=== PATIENT | female | born 1945 ===

== ENCOUNTER 2018-12-14 13:53 | Emergency (ER) | payer MEDICARE ==
--- OUTSIDE RECORDS SUMMARY | 2018-12-14 14:08 | XMS REPORT | Continuity of Care Document ---
:1945 External Reference #:[id number] Author Name Terrence Ortiz Care Team Providers Name Role Phone Jagdish Means MD Primary Care Physician Unavailable Payers Date Identification Numbers Payment Provider Subscriber Effective: 2014 Policy Number: [id number] Medicare Kym Ceballos Group Name: Medicare [address] PayID: [id number] PAZ Vera [id number] Effective: 2014 Policy Number: [id number] Lifetime Benefit Kym Ceballos Solution Group Name: [facility] [address] [address] PayID: [facility] [place] [phone] Effective: 2003 Group Name: Workers[employer] Kym Ceballos Onset: [address] [place] [address] Advance Directives Description No Information Available Problems Date Description Provider Status Onset: 08/13/2018 Upper respiratory infection Active Onset: 08/13/2018 Osteoarthritis Active Onset: 08/13/2018 Acute bronchitis Active Onset: 06/10/2012 Essential hypertension Active Onset: 06/10/2012 Hyperlipidemia Active Onset: 06/10/2012 Gastroesophageal reflux disease Active Onset: 06/10/2012 Arthropathy Active Onset: 06/10/2012 Microscopic hematuria Active Onset: 06/10/2012 Neck pain Active Onset: 11/18/2018 Chest pain CATA Pa Active Onset: 11/18/2018 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 Bradycardia CATA Pa Active Onset: 11/18/2018 Premature beats CATA Pa Active Onset: 11/18/2018 Allergic rhinitis CATA Pa Active Family History Date Family Member(s) Observation Comments General NM General multiple births General Stroke General Alcoholism General Arthritis General Bipolar Disorder General Depression General Anemia General Gastroesophageal Reflux Disease (GERD) General Glaucoma General Diverticulitis General Gout Father due to NM () Mother due to Stroke () Siblings 7 Social History Type Date Description Comments Sex Unknown Marital Status Lives With Alone Occupation Retired ETOH Use Occasionally consumes alcohol Tobacco Use Start: Unknown Patient has never smoked Recreational Drug Use Never Used Drugs Smoking Status Reviewed: 11/18/18 Patient has never smoked Exercise Type/Frequency Exercises regularly Exercise Type/Frequency Bikes 5 times a week Allergies, Adverse Reactions, Alerts Date Description Reaction Status Severity Comments 08/30/2018 Morphine Liposomal Free Text Active 08/30/2018 Sulfa Antibiotics Active Medications Medication Date Status Form Strength Qnty SIG Indications Ordering Provider Amoxicillin 11/25/ Active Tablets 875mg 20tabs 1 by mouth J02.9 Jagdish 2018 twice a day Davis hendrickson MD Zantac 02/25/ Active Tablets 300mg 90tabs Take One Jagdish 2017 Tablet By Davis Mouth AT os, Bedtime Exforge 08/24/ Active Tablets 10-160mg 90tabs Take One Jagdish 2015 Tablet By Josieellamaria ines Mouth Every os, Day Vitamin D3 09/16/ Active Tablets 2000Unit 30tabs 1 by mouth Jagdish Super Strength 2016 every day Davis hendrickson MD Atorvastatin 05/21/ Active Tablets 10mg 90tabs Take One Jagdish Calcium 2015 Tablet By Castellamaria ines Mouth Every os, Day Pantoprazole 12/02/ Active Tablets DR 40mg 90tabs Take One Jagdish Sodium 2014 Tablet By Castellamaria ines Mouth Every os, MD [place] Amoxicillin 08/13/ Hx Tablets 500mg 20tabs 1 by mouth J20.9 Jagdish 2017 - three times Castellan 08/20/ a day os, 2018 Benzonatate 03/22/ Hx Capsules 200mg 30caps one three R05 Jagdish 2017 - times a day Castellan 06/21/ as needed os, 2018 cough Amoxicillin 03/22/ Hx Tablets 875mg 20tabs 1 by mouth J20.9 Jagdish 2017 - twice a day Castellan 06/21/ os, 2018 Amoxicillin 03/16/ Hx Tablets 875mg 20tabs 1 by mouth J06.9 Jagdish 2015 - twice a day Castellan 09/19/ osMD 2017 Zantac 12/15/ Hx Tablets 150mg 180tab one to pill K21.9 Jagdish 2015 - s twice a day Josieellan 12/21/ os, 2016 Amoxicillin 09/23/ Hx Tablets 875mg 20tabs 1 by mouth J02.9 Jagdish 2016 - twice a day Castellan 12/15/ os, 2016 Melatonin 09/16/ Hx Capsules 5mg @ hs Jagdish 2016 - Castellan 06/20/ os, 2016 Levofloxacin 08/17/ Hx Tablets 500mg 10tabs 1 by mouth J06.9 Jagdish 2014 - every day Castellan 09/16/ os, 2016 Advair Diskus 08/17/ Hx Aerosol 500-50mcg/ 60unit inhale 1 R05 Jagdish 2014 - Dose s puff by Castellan 08/17/ mouth twice os, 2015 daily - rinse mouth after each use Prednisone 08/10/ Hx Tablets 20mg 9tabs day 1and J98.01 Jagdish 2014 - day 2 two Castellan 09/16/ tablets os, 2015 qd,then day3,4,5 one qd,the one half tabletday 6,7,8,9 Doxycycline 08/10/ Hx Capsules 100mg 20caps 1 by mouth J06.9 Jagdish Solis 2014 - twice a day Castellan 09/16/ for 10 days os, 2015 Prednisone 11/26/ Hx Tablets 20mg 9tabs day 1and 519.11 Jagdish 2013 - day 2 two Castellan 12/10/ tablets os, 2013 qd,then day3,4,5 one qd,the one half tabletday 6,7,8,9 Benzonatate 11/26/ Hx Capsules 200mg 30caps one three 786.2 Jagdish 2013 - times a day Castellan 12/10/ as needed os, 2013 cough Vitamin D 06/11/ Hx Capsules [id number] 4caps take 1 790.6 Jagdish (Ergocalcifero 2012 - capsule by Davis tobias) 09/16/ mouth once os, 2016 weekly Benzonatate 10/07/ Hx Capsules 200mg 30caps one tid prn 786.2 Jagdish 2012 - cough Josieellan 09/11/ os, 2013 Proair HFA 10/07/ Hx Aerosol 108(90Base 1units 2 puffs q 4 786.2 Jagdish 2012 - ) mcg/Act hrs prn oJsieellan 09/11/ os, 2013 Zithromax 10/03/ Hx Tablets 250mg 6tabs day number 466.0 Jagdish 2012 - one two Castellan 09/11/ qd,thendays os, 2013 two thru five one pill qd Vitamin D 06/10/ Hx Capsules [id number] 4caps take 1 268.9 Jagdish (Ergocalcifero 2011 - capsule by Davis tobias) 09/11/ mouth once os, MD [place] weekly Erythromycin / Hx Ointment 5mg/GM Apply To Unknown 0000 - Sutures 06/20/ Four Times 2017 A Day For 7 10 Days Medications Administered in Office Medication Date Status Form Strength Qnty SIG Indications Ordering Provider Shingrix Administered Injection Unknown pharmacy 019 administered Immunizations CPT Code Status Date Vaccine Lot # [id number] Given 06/22/2018 Zoster (Shingles) Vaccine (HZV), Recombinant, Subunit, Adjuvanted 93289 Given 06/21/2018 Fluzone High Dose 94234 Given 06/20/2017 Pneumonia Vaccine 57399 Given 06/20/2017 Fluzone High Dose 48323 Given 06/19/2016 Pneumococcal Conjugate Vaccine 13 Valent For Intramuscular Use 15255 Given 06/19/2016 Fluzone High Dose 27796 Given 06/17/2015 Fluzone High Dose 37160 Given 06/15/2014 Fluzone High Dose 62059 Given 06/10/2012 Pneumonia Vaccine 72380 Given 10/26/2010 Zoster (Zostavax) 86401 Given 05/06/2009 Tdap - Tetanus/Diptheria/Acellular Pertussis 42177 Given 04/12/2000 Rabies Vaccine Intramuscular 29202 Given 04/09/2000 Rabies Vaccine Intramuscular 37507 Given 12/02/1999 Hepatitis B Lisa Adoles For Intramuscular Use 68905 Given 06/21/1999 Hepatitis B Lisa Adoles For Intramuscular Use 18398 Given 05/24/1999 Hepatitis B Lisa Adoles For Intramuscular Use Vital Signs Date Vital Result Comment 11/25/2018 11:36am Weight 172.25 lb Heart Rate 83 /min Body Temperature 99.3 F O2 % BldC Oximetry 98 % 11/18/2018 2:29pm Weight 171.25 lb Heart Rate 80 /min BP Systolic Sitting 110 mmHg BP Diastolic Sitting 50 mmHg O2 % BldC Oximetry 97 % 2018 10:13am Weight 171.00 lb BP Systolic Sitting 110 mmHg BP Diastolic Sitting 50 mmHg 08/13/2018 1:04pm Weight 175.00 lb BP Systolic 122 mmHg BP Diastolic 76 mmHg Body Temperature 97.3 F 06/21/2018 9:40am Height 60 inches Weight 174.38 lb Respiratory Rate 12 /min Body Temperature 98.7 F BMI (Body Mass Index) 34.1 kg/m2 06/21/2018 10:50am BP Systolic 120 mmHg BP Diastolic 80 mmHg 03/22/2018 10:04am Weight 185.00 lb Heart Rate 82 /min BP Systolic 112 mmHg BP Diastolic 72 mmHg 02/04/2018 1:29pm Weight 193.31 lb BP Systolic 116 mmHg BP Diastolic 70 mmHg 12/21/2017 10:06am Weight 196.00 lb BP Systolic 118 mmHg BP Diastolic 70 mmHg 09/20/2017 10:45am Weight 201.00 lb BP Systolic 118 mmHg BP Diastolic 70 mmHg 06/20/2017 1:16pm Height 60 inches Weight 209.00 lb Heart Rate 70 /min BP Systolic 122 mmHg BP Diastolic 70 mmHg Respiratory Rate 12 /min Body Temperature 98.7 F BMI (Body Mass Index) 40.8 kg/m2 03/19/2017 9:58am Height 60.5 inches Weight 208.00 lb BP Systolic 118 mmHg BP Diastolic 82 mmHg BMI (Body Mass Index) 39.9 kg/m2 12/19/2016 2:28pm Height 60.5 inches Weight 206.00 lb Heart Rate 70 /min BP Systolic 116 mmHg BP Diastolic 68 mmHg Respiratory Rate 12 /min Body Temperature 97.0 F BMI (Body Mass Index) 39.6 kg/m2 12/18/2016 9:29am Weight 206.00 lb BP Systolic 116 mmHg BP Diastolic 68 mmHg 09/19/2016 11:19am Weight 205.00 lb BP Systolic 118 mmHg BP Diastolic 68 mmHg 06/19/2016 1:15pm Height 60.5 inches Weight 197.00 lb Heart Rate 70 /min BP Systolic 120 mmHg BP Diastolic 70 mmHg Respiratory Rate 12 /min Body Temperature 98.7 F BMI (Body Mass Index) 37.8 kg/m2 03/16/2016 10:07am Weight 196.00 lb BP Systolic 118 mmHg BP Diastolic 70 mmHg 12/16/2015 10:14am Weight 202.00 lb BP Systolic 124 mmHg BP Diastolic 70 mmHg 09/23/2015 1:45pm Weight 207.00 lb BP Systolic 110 mmHg BP Diastolic 60 mmHg Body Temperature 97.8 F 09/16/2015 9:30am Weight 208.00 lb BP Systolic 118 mmHg BP Diastolic 70 mmHg 08/17/2015 10:03am Weight 210.00 lb Heart Rate 76 /min BP Systolic 118 mmHg BP Diastolic 76 mmHg Body Temperature 97.8 F 08/10/2015 1:00pm Weight 212.00 lb 06/17/2015 1:32pm Weight 206.00 lb BP Systolic 128 mmHg BP Diastolic 70 mmHg 03/16/2015 9:01am Weight 205.00 lb BP Systolic 120 mmHg BP Diastolic 72 mmHg 12/15/2014 9:00am Weight 203.00 lb BP Systolic 130 mmHg BP Diastolic 74 mmHg 11/18/2014 4:35pm Weight 203.00 lb BP Systolic 128 mmHg BP Diastolic 80 mmHg 08/31/2014 10:32am Weight 205.38 lb BP Systolic 130 mmHg BP Diastolic 70 mmHg 06/15/2014 3:32pm Height 60.75 inches Weight 210.00 lb Heart Rate 81 /min BP Systolic 120 mmHg BP Diastolic 82 mmHg Body Temperature 97.7 F BMI (Body Mass Index) 40.0 kg/m2 02/16/2014 10:37am Height 61 inches Weight 197.25 lb Heart Rate 70 /min BP Systolic 116 mmHg BP Diastolic 70 mmHg Respiratory Rate 14 /min Body Temperature 98.6 F BMI (Body Mass Index) 37.3 kg/m2 12/10/2013 4:07pm Weight 194.00 lb BP Systolic 118 mmHg BP Diastolic 78 mmHg 11/26/2013 9:28am Weight 194.00 lb BP Systolic 118 mmHg BP Diastolic 70 mmHg Body Temperature 98.8 F 09/11/2013 2:27pm Weight 199.00 lb BP Systolic 118 mmHg BP Diastolic 68 mmHg 06/11/2013 3:49pm Height 61.5 inches Weight 197.00 lb Heart Rate 68 /min BP Systolic 1130 mmHg BP Diastolic 70 mmHg Respiratory Rate 14 /min Body Temperature 98.8 F BMI (Body Mass Index) 36.6 kg/m2 01/07/2013 4:01pm Weight 195.00 lb BP Systolic 130 mmHg BP Diastolic 80 mmHg 10/07/2012 3:13pm Weight 193.00 lb Heart Rate 79 /min Body Temperature 97.8 F 10/03/2012 4:16pm Weight 193.00 lb Body Temperature 99.0 F 07/01/2012 3:35pm Weight 191.00 lb BP Systolic 130 mmHg BP Diastolic 82 mmHg Body Temperature 97.1 F 06/10/2012 4:24pm Weight 197.00 lb BP Systolic 138 mmHg BP Diastolic 80 mmHg Results Test Date Facility Test Result H/L Range Note Laboratory test 06/14/2018 N2N/CCD Import Thyroid Stim 1.51 uIU/mL 0.3- 4.2 1 finding Hormone Vitamin D,25-Hydroxy 57.9 ng/mL 30-100 2 Basic Metabolic Panel 06/14/2018 N2N/CCD Import Anion Gap 5 mEq/L Low 8- 16 BUN 14 mg/dL 7-18 BUN/Creat 15.5 ratio Calcium 9.4 mg/dL 8.5-10.1 Carbon Dioxide 30 mmol/L 21-32 Chloride 108 mmol/L High 98-107 Creatinine 0.9 mg/dL 0.6-1.3 Glom Filtration Rate, Estimate >60 mL/min Glucose 102 mg/dL 74-106 If >60 mL/min 3 Potassium 3.9 mmol/L 3.5-5.1 Sodium 143 mmol/L 136-145 CBC Auto Diff 06/14/2018 N2N/CCD Import Bas% 0.5 % 0-1.1 Baso # 0.03 K/uL 0-0.1 Eo% 0.8 % 0-6.6 Eos # 0.05 K/uL 0-0.5 Hematocrit 37.5 % 36-46.1 Hemoglobin 12.4 gm/dL 11.6-15.8 Lymph # 1.92 K/uL 1-4 Lymph % 32.0 % 20-42 Mean Cell Volume 92.8 fl 80.9-99 Mean Corpuscular HGB 30.7 pg 25.9-32.7 Mean Corpuscular HGB Conc 33.1 g/dL 30.8-34.3 Mean Platelet Volume 10.3 fL 8.9-12.4 [place] # 0.41 K/uL 0.3-0.9 [place] % 6.8 % 4.3-13.2 Neut# 3.59 K/uL 1.8-7 Neut% 59.9 % 40.4-72.8 Platelet Count 301 K/uL 155-360 Red Blood Count 4.04 M/uL 3.9-5.4 Red Cell Distri Width %CV 13.8 % 11.7-14.4 Red Cell Distri Width SD 46.2 fl 3-47 White Blood Count 6.0 K/uL 3.1-10.7 Lipid Profile (Trig/Chol/HDL) 06/14/2018 N2N/CCD Import Cholesterol 176 mg/ dL 4 HDL Cholesterol 73 mg/dL 5 LDL-Cholesterol 79 mg/dL 6 Triglycerides 119 mg/dL 7 Liver Function Panel 06/14/2018 N2N/CCD Import Alb/Glob 1.0 ratio Albumin 3.9 g/dL 3.4-5 Alkaline Phosphatase 83 U/L 45-117 Bilirubin,Direct 0.1 mg/dL 0-0.2 Bilirubin,Indirect 0.3 mg/dL 0-0.9 Bilirubin,Total 0.4 mg/dL 0.2-1 Globulin 3.9 g/dL 1.9-4.3 SGPT/Alt 24 U/L 12-78 Sgot/Ast 16 U/L 15-37 Total Protein 7.8 g/dL 6.4-8.2 Basic Metabolic Panel 03/14/2018 N2N/CCD Import Anion Gap 7 mEq/L Low 8- 16 8 BUN 18 mg/dL 7-18 BUN/Creat 20.0 ratio Calcium 9.5 mg/dL 8.5-10.1 Carbon Dioxide 27 mmol/L 21-32 Chloride 110 mmol/L High 98-107 Creatinine 0.9 mg/dL 0.6-1.3 Glom Filtration Rate, Estimate >60 mL/min Glucose 114 mg/dL High 74-106 If >60 mL/min 9 Potassium 4.1 mmol/L 3.5-5.1 Sodium 144 mmol/L 136-145 CBC Auto Diff 03/14/2018 N2N/CCD Import Bas% 0.6 % 0-1.1 Baso # 0.03 K/uL 0-0.1 Eo% 1.1 % 0-6.6 Eos # 0.06 K/uL 0-0.5 Hematocrit 37.4 % 36-46.1 Hemoglobin 12.4 gm/dL 11.6-15.8 Lymph # 1.63 K/uL 1-4 Lymph % 30.3 % 20-42 Mean Cell Volume 91.9 fl 80.9-99 Mean Corpuscular HGB 30.5 pg 25.9-32.7 Mean Corpuscular HGB Conc 33.2 g/dL 30.8-34.3 Mean Platelet Volume 9.8 fL 8.9-12.4 [place] # 0.37 K/uL 0.3-0.9 [place] % 6.9 % 4.3-13.2 Neut# 3.29 K/uL 1.8-7 Neut% 61.1 % 40.4-72.8 Platelet Count 264 K/uL 155-360 Red Blood Count 4.07 M/uL 3.9-5.4 Red Cell Distri Width %CV 13.5 % 11.7-14.4 Red Cell Distri Width SD 44.0 fl 3-47 White Blood Count 5.4 K/uL 3.1-10.7 Lipid Profile (Trig/Chol/HDL) 03/14/2018 N2N/CCD Import Cholesterol 168 mg/ dL 10 HDL Cholesterol 70 mg/dL 11 LDL-Cholesterol 77 mg/dL 12 Triglycerides 105 mg/dL 13 Liver Function Panel 03/14/2018 N2N/CCD Import Alb/Glob 1.1 ratio Albumin 3.9 g/dL 3.4-5 Alkaline Phosphatase 83 U/L 45-117 Bilirubin,Direct 0.2 mg/dL 0-0.2 Bilirubin,Indirect 0.2 mg/dL 0-0.9 Bilirubin,Total 0.4 mg/dL 0.2-1 Globulin 3.7 g/dL 1.9-4.3 SGPT/Alt 28 U/L 12-78 Sgot/Ast 18 U/L 15-37 Total Protein 7.6 g/dL 6.4-8.2 Laboratory test 08/10/2017 N2N/CCD Import Hepatitis C Nonreactive finding Antibody Basic Metabolic 06/14/2017 N2N/CCD Import Anion Gap 7 mEq/L Low 8-16 14 Panel BUN 16 mg/dL 7-18 BUN/Creat 17.7 ratio Calcium 9.4 mg/dL 8.5-10.1 Carbon Dioxide 27 mmol/L 21-32 Chloride 107 mmol/L 98-107 Creatinine 0.9 mg/dL 0.6-1.3 Glom Filtration Rate, Estimate >60 mL/min Glucose 111 mg/dL High 74-106 If >60 mL/min 15 Potassium 4.0 mmol/L 3.5-5.1 Sodium 141 mmol/L 136-145 CBC Auto Diff 06/14/2017 N2N/CCD Import Bas% 0.9 % 0-1.1 Baso # 0.05 K/uL 0-0.1 Eo% 1.6 % 0-6.6 Eos # 0.09 K/uL 0-0.5 Hematocrit 37.6 % 36-46.1 Hemoglobin 12.3 gm/dL 11.6-15.8 Lymph # 1.78 K/uL 1-4 Lymph % 31.0 % 20-42 Mean Cell Volume 90.4 fl 80.9-99 Mean Corpuscular HGB 29.6 pg 25.9-32.7 Mean Corpuscular HGB Conc 32.7 g/dL 30.8-34.3 Mean Platelet Volume 9.6 fL 8.9-12.4 [place] # 0.35 K/uL 0.3-0.9 [place] % 6.1 % 4.3-13.2 Neut# 3.47 K/uL 1.8-7 Neut% 60.4 % 40.4-72.8 Platelet Count 314 K/uL 150-400 Red Blood Count 4.16 M/uL 3.9-5.4 Red Cell Distri Width %CV 13.8 % 11.7-14.4 Red Cell Distri Width SD 44.0 fl 3-47 White Blood Count 5.7 K/uL 3.1-10.7 Lipid Profile (Trig/Chol/HDL) 06/14/2017 N2N/CCD Import Cholesterol 171 mg/ dL 16 HDL Cholesterol 83 mg/dL 17 LDL-Cholesterol 63 mg/dL 18 Triglycerides 124 mg/dL 19 Liver Function Panel 06/14/2017 N2N/CCD Import Alb/Glob 1.0 ratio Albumin 3.8 g/dL 3.4-5 Alkaline Phosphatase 88 U/L 45-117 Bilirubin,Direct 0.1 mg/dL 0-0.2 Bilirubin,Indirect 0.3 mg/dL 0-0.9 Bilirubin,Total 0.4 mg/dL 0.2-1 Globulin 3.8 g/dL 1.9-4.3 SGPT/Alt 21 U/L 12-78 Sgot/Ast 15 U/L 15-37 Total Protein 7.6 g/dL 6.4-8.2 Basic Metabolic Panel 12/18/2016 N2N/CCD Import Anion Gap 6 mEq/L Low 8- 16 20 BUN 18 mg/dL 7-18 BUN/Creat 20.0 ratio Calcium 9.5 mg/dL 8.5-10.1 Carbon Dioxide 28 mmol/L 21-32 Chloride 108 mmol/L High 98-107 Creatinine 0.9 mg/dL 0.6-1.3 Glom Filtration Rate, Estimate >60 mL/min Glucose 100 mg/dL 74-106 If >60 mL/min 21 Potassium 4.1 mmol/L 3.5-5.1 Sodium 142 mmol/L 136-145 CBC Auto Diff 12/18/2016 N2N/[employer] Import Bas% 0.7 % 0-1.1 Baso # 0.04 K/uL 0-0.1 Eo% 0.9 % 0-6.6 Eos # 0.05 K/uL 0-0.5 Hematocrit 38.1 % 36-46.1 Hemoglobin 12.5 gm/dL 11.6-15.8 Lymph # 2.06 K/uL 1-4 Lymph % 38.1 % 20-42 Mean Cell Volume 89.0 fl 80.9-99 Mean Corpuscular HGB 29.2 pg 25.9-32.7 Mean Corpuscular HGB Conc 32.8 g/dL 30.8-34.3 Mean Platelet Volume 10.1 fL 8.9-12.4 [place] # 0.37 K/uL 0.3-0.9 [place] % 6.8 % 4.3-13.2 Neut# 2.89 K/uL 1.8-7 Neut% 53.5 % 40.4-72.8 Platelet Count 301 K/uL 150-400 Red Blood Count 4.28 M/uL 3.9-5.4 Red Cell Distri Width %CV 14.3 % 11.7-14.4 Red Cell Distri Width SD 45.7 fl 3-47 White Blood Count 5.4 K/uL 3.1-10.7 Lipid Profile (Trig/Chol/HDL) 12/18/2016 N2N/[employer] Import Cholesterol 197 mg/ dL 22 HDL Cholesterol 75 mg/dL 23 LDL-Cholesterol 99 mg/dL 24 Triglycerides 117 mg/dL 25 Liver Function Panel 12/18/2016 N2N/[employer] Import Alb/Glob 1.0 ratio Albumin 4.0 g/dL 3.4-5 Alkaline Phosphatase 104 U/L 45-117 Bilirubin,Direct 0.1 mg/dL 0-0.2 Bilirubin,Indirect 0.4 mg/dL 0-0.9 Bilirubin,Total 0.5 mg/dL 0.2-1 Globulin 4.0 g/dL 1.9-4.3 SGPT/Alt 26 U/L 12-78 Sgot/Ast 14 U/L Low 15-37 26 Total Protein 8.0 g/dL 6.4-8.2 Imaging finding 07/10/2016 N2N/CCD Import bilateral mammogram <pending> Basic Metabolic Panel 06/15/2016 N2N/CCD Import @[facility] Pat Id: [id number] @[facility] Req #: [id number] 1 Anion Gap 7 mEq/L Low 8-16 BUN 16 mg/dL 7-18 BUN/Creat 17.7 ratio Calcium 9.1 mg/dL 8.5-10.1 Carbon Dioxide 26 mmol/L 21-32 Chloride 108 mmol/L High 98-107 Creatinine 0.9 mg/dL 0.6-1.3 Glom Filtration Rate, Estimate >60 mL/min Glucose 102 mg/dL 74-106 If >60 mL/min 28 Is Patient Fasting? Fasting Potassium 4.0 mmol/L 3.5-5.1 Sodium 141 mmol/L 136-145 CBS W/Automated Diff 06/15/2016 N2N/CCD Import @[facility] Pat Id: [id number] @[facility] Req #: [id number] 1 Bas% 0.8 % 0-1.1 Baso # 0.04 K/uL 0-0.1 Eo% 1.2 % 0-6.6 Eos # 0.06 K/uL 0-0.5 Hematocrit 36.3 % 36-46.1 Hemoglobin 11.9 gm/dL 11.6-15.8 Lymph # 1.55 K/uL Low 1.8-7 Lymph % 32.2 % 17-46.1 Mean Cell Volume 92.8 fl 80.9-99 Mean Corpuscular HGB 30.4 pg 25.9-32.7 Mean Corpuscular HGB Conc 32.8 g/dL 30.8-34.3 Mean Platelet Volume 9.9 fL 8.9-12.4 [place] # 0.31 K/uL 0.3-0.9 [place] % 6.4 % 4.3-13.2 Neut# 2.86 K/uL 1.8-7 Neut% 59.4 % 40.4-72.8 Platelet Count 313 K/uL 155-360 Red Blood Count 3.91 M/uL 3.9-5.4 Red Cell Distri Width %CV 13.5 % 11.7-14.4 Red Cell Distri Width SD 44.8 fl 3-47 White Blood Count 4.8 K/uL 3.1-10.7 LDL Cholesterol Profile 06/15/2016 N2N/CCD Import @[facility] Pat Id: [id number] @[facility] Req #: [id number] 1 Cholesterol 172 mg/dL 29 HDL Cholesterol 71 mg/dL 30 Is Patient Fasting? Fasting LDL-Cholesterol 80 mg/dL 31 Triglycerides 106 mg/dL 32 Liver Function Tests 06/15/2016 N2N/CCD Import @[facility] Pat Id: [id number] @[facility] Req #: [id number] 1 Alb/Glob 1.1 ratio Albumin 3.7 g/dL 3.4-5 Alkaline Phosphatase 80 U/L 45-117 Bilirubin,Direct 0.1 mg/dL 0-0.2 Bilirubin,Indirect 0.3 mg/dL 0-0.9 Bilirubin,Total 0.4 mg/dL 0.2-1 Globulin 3.5 g/dL 1.9-4.3 Is Patient Fasting? Fasting SGPT/Alt 20 U/L 12-78 Sgot/Ast 16 U/L 15-37 Total Protein 7.2 g/dL 6.4-8.2 Laboratory test 09/23/2015 N2N/CCD Import Throat Strep See Note 33 finding Screen Basic Metabolic Panel 06/11/2015 N2N/CCD Import Anion Gap 5 mEq/L Low 8- 16 BUN 18 mg/dL 7-18 BUN/Creat 18.0 ratio Calcium 9.1 mg/dL 8.5-10.1 Carbon Dioxide 28 mmol/L 21-32 Chloride 107 mmol/L 98-107 Creatinine 1.0 mg/dL 0.6-1.3 Glom Filtration Rate, Estimate 59 mL/min Glucose 102 mg/dL 74-106 If >60 mL/min 34 Potassium 4.0 mmol/L 3.5-5.1 Sodium 140 mmol/L 136-145 CBS W/Automated Diff 06/11/2015 N2N/CCD Import Bas% 1.0 % 0-1.1 Baso # 0.06 K/uL 0-0.1 Eo% 2.1 % 0-6.6 Eos # 0.12 K/uL 0-0.5 Hematocrit 34.7 % Low 36-46.1 Hemoglobin 11.6 gm/dL 11.6-15.8 Lymph # 1.69 K/uL Low 1.8-7 Lymph % 29.0 % 17-46.1 Mean Cell Volume 91.6 fl 80.9-99 Mean Corpuscular HGB 30.6 pg 25.9-32.7 Mean Corpuscular HGB Conc 33.4 g/dL 30.8-34.3 Mean Platelet Volume 10.1 fL 8.9-12.4 [place] # 0.44 K/uL 0.3-0.9 [place] % 7.5 % 4.3-13.2 Neut# 3.52 K/uL 1-7 Neut% 60.4 % 40.4-72.8 Platelet Count 289 K/uL 155-360 Red Blood Count 3.79 M/uL Low 3.9-5.4 Red Cell Distri Width %CV 13.9 % 11.7-14.4 Red Cell Distri Width SD 44.2 fl 3-47 White Blood Count 5.8 K/uL 3.1-10.7 LDL Cholesterol Profile 06/11/2015 [employer] Import Cholesterol 181 mg/dL 35 HDL Cholesterol 74 mg/dL 36 LDL-Cholesterol 83 mg/dL 37 Triglycerides 121 mg/dL 38 Liver Function Tests 06/11/2015 [employer] Import Alb/Glob 0.9 ratio Albumin 3.6 g/dL 3.4-5 Alkaline Phosphatase 100 U/L 45-117 Bilirubin,Direct < 0.1 mg/dL 0-0.2 Bilirubin,Indirect 0.3 mg/dL 0-0.9 Bilirubin,Total 0.4 mg/dL 0.2-1 Globulin 3.8 g/dL 1.9-4.3 SGPT/Alt 32 U/L 12-78 Sgot/Ast 15 U/L 15-37 Total Protein 7.4 g/dL 6.4-8.2 Imaging finding 06/25/2014 N2N/[employer] Import bilateral screening <pending> mammogram Laboratory test 06/12/2014 [employer] Import Glycohemoglobin (A1c) 6.1 % 4.2-6. 39 finding 3 TSH Reflex FT4 and/or FT3 1.59 uIU/mL 0.36-3.74 40 Vitamin D,25-Hydroxy 36.1 ng/mL 30-100 41 eAG 128 mg/dL Basic Metabolic Panel 06/12/2014 N2N/CCD Import Anion Gap 9 mEq/L 8-16 BUN 17 mg/dL 7-18 BUN/Creat 21.2 ratio Calcium 8.9 mg/dL 8.5-10.1 Carbon Dioxide 26 mmol/L 21-32 Chloride 111 mmol/L High 98-107 Creatinine 0.8 mg/dL 0.6-1.3 Glom Filtration Rate, Estimate >60 mL/min Glucose 91 mg/dL 74-106 If >60 mL/min 42 Potassium 3.9 mmol/L 3.5-5.1 Sodium 142 mmol/L 136-145 CBS W/Automated Diff 06/12/2014 N2N/CCD Import Bas% 1.0 % 0-1.1 Baso # 0.05 K/uL 0-0.1 Eo% 2.0 % 0-6.6 Eos # 0.10 K/uL 0-0.5 Hematocrit 35.7 % Low 36-46.1 Hemoglobin 11.6 gm/dL 11.6-15.8 Lymph # 1.98 K/uL 0.8-3.4 Lymph % 39.4 % 17-46.1 Mean Cell Volume 89.0 fl 80.9-99 Mean Corpuscular HGB 28.9 pg 25.9-32.7 Mean Corpuscular HGB Conc 32.5 g/dL 30.8-34.3 Mean Platelet Volume 9.7 fL 8.9-12.4 [place] # 0.31 K/uL 0.3-0.9 [place] % 6.2 % 4.3-13.2 Neut# 2.58 K/uL 1-7 Neut% 51.4 % 40.4-72.8 Platelet Count 271 K/uL 155-360 Red Blood Count 4.01 M/uL 3.9-5.4 Red Cell Distri Width %CV 13.5 % 11.7-14.4 Red Cell Distri Width SD 43.0 fl 3-47 White Blood Count 5.0 K/uL 3.1-10.7 LDL Cholesterol Profile 06/12/2014 N2N/CCD Import Cholesterol 188 mg/dL 43 HDL Cholesterol 78 mg/dL 44 LDL-Cholesterol 87 mg/dL 45 Triglycerides 115 mg/dL 46 Liver Function Tests 06/12/2014 N2N/CCD Import Alb/Glob 0.9 ratio Albumin 3.4 g/dL 3.4-5 Alkaline Phosphatase 86 U/L 45-117 Bilirubin,Direct 0.1 mg/dL 0-0.2 Bilirubin,Indirect 0.2 mg/dL 0-0.9 Bilirubin,Total 0.3 mg/dL 0.2-1 Globulin 3.6 g/dL 1.9-4.3 SGPT/Alt 22 U/L 12-78 Sgot/Ast 12 U/L Low 15-37 Total Protein 7.0 g/dL 6.4-8.2 Laboratory test 09/03/2013 N2N/CCD Import Vitamin 38.7 ng/mL 30-100 47 finding D,25-Hydroxy Imaging finding 06/23/2013 N2N/CCD Import bilateral screening <pending> mamogram Laboratory test 06/07/2013 N2N/CCD Import Anion Gap 11 mEq/L 8-16 finding BUN 17 mg/dL 5-23 BUN/Creat 24.2 ratio Calcium 9.8 mg/dL 8.5-10.1 Carbon Dioxide 28 mEq/L 18-29 Chloride 106 mmol/L 98-107 Creatinine 0.7 mg/dL 0.5-1.4 Glom Filtration Rate, Estimate >60 mL/min Glucose 94 mg/dL 76-115 Glycohemoglobin (A1c) 6.0 % 4.8-6 48 If >60 mL/min 49 Potassium 4.1 mmol/L 3.5-5.1 Sodium 141 mmol/L 136-145 TSH Reflex FT4 and/or FT3 2.13 uIU/mL 0.49-4.67 50 Vitamin D,25-Hydroxy 25.0 ng/mL Low 30-100 51 eAG 126 mg/dL CBS W/Automated Diff 06/07/2013 N2N/CCD Import Bas% 0.7 % 0-1.1 Baso # 0.04 K/uL 0-0.1 Eo% 1.2 % 0-6.6 Eos # 0.07 K/uL 0-0.5 Hematocrit 36.9 % 36-46.1 Hemoglobin 12.5 gm/dL 11.6-15.8 Lymph # 1.79 K/uL 0.8-3.4 Lymph % 31.2 % 17-46.1 Mean Cell Volume 90.2 fl 80.9-99 Mean Corpuscular HGB 30.6 pg 25.9-32.7 Mean Corpuscular HGB Conc 33.9 g/dL 30.8-34.3 Mean Platelet Volume 10.3 fL 8.9-12.4 [place] # 0.36 K/uL 0.3-0.9 [place] % 6.3 % 4.3-13.2 Neut# 3.48 K/uL 1-7 Neut% 60.6 % 40.4-72.8 Platelet Count 298 K/uL 155-360 Red Blood Count 4.09 M/uL 3.9-5.4 Red Cell Distri Width %CV 13.2 % 11.7-14.4 Red Cell Distri Width SD 42.9 fl 3-47 White Blood Count 5.7 K/uL 3.1-10.7 LDL Cholesterol Profile 06/07/2013 [facility] Import Cholesterol 188 mg/dL 120-200 HDL Cholesterol 65 mg/dL 29-83 LDL-Cholesterol 93 mg/dL 62-185 Triglycerides 148 mg/dL 16-231 Liver Function Tests 06/07/2013 [facility] Import Alb/Glob 1.1 ratio Albumin 4.0 g/dL 3.5-5 Alkaline Phosphatase 93 U/L 50-136 Bilirubin,Direct 0.1 mg/dL 0.1-0.4 Bilirubin,Indirect 0.4 mg/dL 0-0.9 Bilirubin,Total 0.5 mg/dL 0.2-1.2 Globulin 3.7 g/dL 1.9-4.3 SGPT/Alt 22 U/L Low 30-65 Sgot/Ast 13 U/L Low 16-40 Total Protein 7.7 g/dL 6.3-8 Laboratory test 01/04/2013 [facility] Import Glycohemoglobin (A1c) 6.3 % High 4.8-6 52 finding TSH Reflex FT4 and/or FT3 1.95 uIU/mL 0.49-4.67 53 eAG 134 mg/dL Basic Metabolic Panel 01/04/2013 [facility] Import Anion Gap 12 mEq/L 8-16 BUN 14 mg/dL 5-23 BUN/Creat 17.5 ratio Calcium 9.4 mg/dL 8.5-10.1 Carbon Dioxide 26 mEq/L 18-29 Chloride 108 mmol/L High 98-107 Creatinine 0.8 mg/dL 0.5-1.4 Glom Filtration Rate, Estimate >60 mL/min Glucose 88 mg/dL 76-115 If >60 mL/min 54 Potassium 4.2 mmol/L 3.5-5.1 Sodium 142 mmol/L 136-145 Liver Function Tests 01/04/2013 [facility] Import Alb/Glob 1.1 ratio Albumin 3.8 g/dL 3.5-5 Alkaline Phosphatase 86 U/L 50-136 Bilirubin,Direct 0.1 mg/dL 0.1-0.4 Bilirubin,Indirect 0.5 mg/dL 0-0.9 Bilirubin,Total 0.6 mg/dL 0.2-1.2 Globulin 3.6 g/dL 1.9-4.3 SGPT/Alt 23 U/L Low 30-65 Sgot/Ast 12 U/L Low 16-40 Total Protein 7.4 g/dL 6.3-8 LDL Cholesterol 01/04/2013 [facility] Import Cholesterol 202 mg/dL High 120- 200 Profile HDL Cholesterol 87 mg/dL High 29-83 LDL-Cholesterol 94 mg/dL 62-185 Triglycerides 106 mg/dL 16-231 Laboratory test 08/02/2012 [facility] Import Vitamin D,25-Hydroxy 41.5 ng/mL 30-100 55 finding Laboratory test 05/29/2012 [facility] Import Glycohemoglobin 6.4 % High 4.8- 6 56 finding (A1c) eAG 137 mg/dL Laboratory test 05/29/2012 [facility] Import 2 Hour GTT See Note mg/dL 57 finding CBC W/Automated Diff 05/25/2012 [facility] Import Bas% 0.7 % 0-1.1 Baso # 0.04 K/uL 0-0.1 Eo% 3.1 % 0-6.6 Eos # 0.18 K/uL 0-0.5 Hematocrit 35.8 % Low 36-46.1 Hemoglobin 11.9 gm/dL 11.6-15.8 Lymph # 1.90 K/uL 0.8-3.4 Lymph % 33.2 % 17-46.1 Mean Cell Volume 88.2 fl 80.9-99 Mean Corpuscular HGB 29.3 pg 25.9-32.7 Mean Corpuscular HGB Conc 33.2 g/dL 30.8-34.3 Mean Platelet Volume 9.9 fL 8.9-12.4 [place] # 0.39 K/uL 0.3-0.9 [place] % 6.8 % 4.3-13.2 Neut# 3.21 K/uL 1-7 Neut% 56.2 % 40.4-72.8 Platelet Count 276 K/uL 155-360 Red Blood Count 4.06 M/uL 3.9-5.4 Red Cell Distri Width %CV 13.7 % 11.7-14.4 Red Cell Distri Width SD 42.8 fl 3-47 White Blood Count 5.7 K/uL 3.1-10.7 LDL Cholesterol Profile 05/25/2012 [facility] Import Cholesterol 193 mg/dL 120-200 HDL Cholesterol 71 mg/dL 29-83 LDL-Cholesterol 90 mg/dL 62-185 Triglycerides 161 mg/dL 16-231 Liver Function Tests 05/25/2012 [facility] Import Alb/Glob 1.1 ratio Albumin 3.7 g/dL 3.5-5 Alkaline Phosphatase 69 U/L 50-136 Bilirubin,Direct 0.1 mg/dL 0.1-0.4 Bilirubin,Indirect 0.4 mg/dL 0-0.9 Bilirubin,Total 0.5 mg/dL 0.2-1.2 Globulin 3.5 g/dL 1.9-4.3 SGPT/Alt 25 U/L Low 30-65 Sgot/Ast 12 U/L Low 16-40 Total Protein 7.2 g/dL 6.3-8 Basic Metabolic Panel 05/25/2012 [facility] Anion Gap 12 mEq/L 8-16 BUN 12 mg/dL 5-23 BUN/Creat 15.0 ratio Calcium 9.2 mg/dL 8.5-10.1 Carbon Dioxide 25 mEq/L 18-29 Chloride 108 mmol/L High 98-107 Creatinine 0.8 mg/dL 0.5-1.4 Glom Filtration Rate, Estimate >60 mL/min Glucose 90 mg/dL 76-115 If >60 mL/min 58 Potassium 3.7 mmol/L 3.5-5.1 Sodium 141 mmol/L 136-145 Laboratory test 05/25/2012 [facility] Import Glycohemoglobin (A1c) 6.5 % High 4.8-6 59 finding TSH Reflex FT4 and/or FT3 1.69 uIU/mL 0.49-4.67 60 Vitamin D,25-Hydroxy 28.8 ng/mL Low 30-100 61 eAG 140 mg/dL 1 E78.5,I10,R53.83 2 Vitamin D deficiency has been defined by the [place] [employer] and an Endocrine Society practice guideline as a level of serum 25-OH vitamin D less than 20 ng/mL (1,2). The Endocrine Society went on to further define vitamin D insufficiency as a level between 21 and 29 ng/mL (2). 1. IOM ([place] [employer]). 2010. Dietary reference intakes for calcium and D. [place]: The National Academ[employer] Press. 2. Kellie MF, Donald NC, Rossi JONES, et al. Evaluation, treatment, and prevention of vitamin D deficiency: an Endocrine Society clinical practice guideline. JCEM. 2010; 96(7):1911-30. Performed at: RN - [facility] [address] [id number] Hotel Front Office Manager: Joceline Herrera MD, Phone: [phone] Note: Persistent reduction for 3 months or more in an eGFR <60 mL/min/1.73 m2 defines CKD. Patients with eGFR values >/=60 mL/min/1.73 m2 may also have CKD if evidence of persistent proteinuria is present. The original MDRD equation for estimated GFR is not valid for patients less than 18 years of age. Additional information may be found at www.kdoqi.org. 4 Reference Guidelines*: Desirable: ........... < 200 mg/dL Borderline High: ..... 200-239 mg/dL High: ................ >=240 mg/dL * The National Cholesterol Education Program (NCEP) 5 Reference Guidelines*: Low HDL: ..... < 40 mg/dL Normal: ..... 40-60 mg/dL Desirable: ... > 60 mg/dL *The National Cholesterol Education Program(NCEP) 6 Reference Guidelines*: Optimal:........... <100 mg/dL Near Optimal....... 100-129 mg/dL Borderline High.... 130-159 mg/dL High............... 160-189 mg/dL Very High.......... >=190 mg/dL * Source: National Cholesterol Education Program (NCEP) 7 Reference Guidelines*: Normal: ............. < 150 mg/dL Borderline High: .... 150-199 mg/dL High: ............... 200-499 mg/dL Very High: .......... > 500 mg/dL * Source: National Cholesterol Education Program (NCEP) 8 I10 M15.0 E78.5 K21.9 9 Note: Persistent reduction for 3 months or more in an eGFR <60 mL/min/1.73 m2 defines CKD. Patients with eGFR values >/=60 mL/min/1.73 m2 may also have CKD if evidence of persistent proteinuria is present. The original MDRD equation for estimated GFR is not valid for patients less than 18 years of age. Additional information may be found at www.[email or web address]. 10 Reference Guidelines*: Desirable: ........... < 200 mg/dL Borderline High: ..... 200-239 mg/dL High: ................ >=240 mg/dL * The National Cholesterol Education Program (NCEP) 11 Reference Guidelines*: Low HDL: ..... < 40 mg/dL Normal: ..... 40-60 mg/dL Desirable: ... > 60 mg/dL *The National Cholesterol Education Program(NCEP) 12 Reference Guidelines*: Optimal:........... <100 mg/dL Near Optimal....... 100-129 mg/dL Borderline High.... 130-159 mg/dL High............... 160-189 mg/dL Very High.......... >=190 mg/dL * Source: National Cholesterol Education Program (NCEP) 13 Reference Guidelines*: Normal: ............. < 150 mg/dL Borderline High: .... 150-199 mg/dL High: ............... 200-499 mg/dL Very High: .......... > 500 mg/dL * Source: National Cholesterol Education Program (NCEP) 14 I10,E78.5,K21.9 15 Note: Persistent reduction for 3 months or more in an eGFR <60 mL/min/1.73 m2 defines CKD. Patients with eGFR values >/=60 mL/min/1.73 m2 may also have CKD if evidence of persistent proteinuria is present. The original MDRD equation for estimated GFR is not valid for patients less than 18 years of age. Additional information may be found at www.kdoqi.org. 16 Reference Guidelines*: Desirable: ........... < 200 mg/dL Borderline High: ..... 200-239 mg/dL High: ................ >=240 mg/dL * The National Cholesterol Education Program (NCEP) 17 Reference Guidelines*: Low HDL: ..... < 40 mg/dL Normal: ..... 40-60 mg/dL Desirable: ... > 60 mg/dL *The National Cholesterol Education Program(NCEP) 18 Reference Guidelines*: Optimal:........... <100 mg/dL Near Optimal....... 100-129 mg/dL Borderline High.... 130-159 mg/dL High............... 160-189 mg/dL Very High.......... >=190 mg/dL * Source: National Cholesterol Education Program (NCEP) 19 Reference Guidelines*: Normal: ............. < 150 mg/dL Borderline High: .... 150-199 mg/dL High: ............... 200-499 mg/dL Very High: .......... > 500 mg/dL * Source: National Cholesterol Education Program (NCEP) 20 E78.5 K21.9 21 Note: Persistent reduction for 3 months or more in an eGFR <60 mL/min/1.73 m2 defines CKD. Patients with eGFR values >/=60 mL/min/1.73 m2 may also have CKD if evidence of persistent proteinuria is present. The original MDRD equation for estimated GFR is not valid for patients less than 18 years of age. Additional information may be found at www.[email or web address]. 22 Reference Guidelines*: Desirable: ........... < 200 mg/dL Borderline High: ..... 200-239 mg/dL High: ................ >=240 mg/dL * The National Cholesterol Education Program (NCEP) 23 Reference Guidelines*: Low HDL: ..... < 40 mg/dL Normal: ..... 40-60 mg/dL Desirable: ... > 60 mg/dL *The National Cholesterol Education Program(NCEP) 24 Reference Guidelines*: Optimal:........... <100 mg/dL Near Optimal....... 100-129 mg/dL Borderline High.... 130-159 mg/dL High............... 160-189 mg/dL Very High.......... >=190 mg/dL * Source: National Cholesterol Education Program (NCEP) 25 Reference Guidelines*: Normal: ............. < 150 mg/dL Borderline High: .... 150-199 mg/dL High: ............... 200-499 mg/dL Very High: .......... > 500 mg/dL * Source: National Cholesterol Education Program (NCEP) 26 Values below the stated reference ranges of AST and ALT can be seen in normal populations. Clinical correlation is suggested. 27 E78.5,I10,K21.9 28 Note: Persistent reduction for 3 months or more in an eGFR <60 mL/min/1.73 m2 defines CKD. Patients with eGFR values >/=60 mL/min/1.73 m2 may also have CKD if evidence of persistent proteinuria is present. The original MDRD equation for estimated GFR is not valid for patients less than 18 years of age. Additional information may be found at www.kdoqi.org. 29 Reference Guidelines*: Desirable: ........... < 200 mg/dL Borderline High: ..... 200-239 mg/dL High: ................ >=240 mg/dL * The National Cholesterol Education Program (NCEP) 30 Reference Guidelines*: Low HDL: ..... < 40 mg/dL Normal: ..... 40-60 mg/dL Desirable: ... > 60 mg/dL *The National Cholesterol Education Program(NCEP) 31 Reference Guidelines*: Optimal:........... <100 mg/dL Near Optimal....... 100-129 mg/dL Borderline High.... 130-159 mg/dL High............... 160-189 mg/dL Very High.......... >=190 mg/dL * Source: National Cholesterol Education Program (NCEP) 32 Reference Guidelines*: Normal: ............. < 150 mg/dL Borderline High: .... 150-199 mg/dL High: ............... 200-499 mg/dL Very High: .......... > 500 mg/dL * Source: National Cholesterol Education Program (NCEP) 33 NO BETA STREPTOCOCCI ISOLATED 34 Note: Persistent reduction for 3 months or more in an eGFR <60 mL/min/1.73 m2 defines CKD. Patients with eGFR values >/=60 mL/min/1.73 m2 may also have CKD if evidence of persistent proteinuria is present. The original MDRD equation for estimated GFR is not valid for patients less than 18 years of age. Additional information may be found at www.[email or web address]. 35 Reference Guidelines*: Desirable: ........... < 200 mg/dL Borderline High: ..... 200-239 mg/dL High: ................ >=240 mg/dL * The National Cholesterol Education Program (NCEP) 36 Reference Guidelines*: Low HDL: ..... < 40 mg/dL Normal: ..... 40-60 mg/dL Desirable: ... > 60 mg/dL *The National Cholesterol Education Program(NCEP) 37 Reference Guidelines*: Optimal:........... <100 mg/dL Near Optimal....... 100-129 mg/dL Borderline High.... 130-159 mg/dL High............... 160-189 mg/dL Very High.......... >=190 mg/dL * Source: National Cholesterol Education Program (NCEP) 38 Reference Guidelines*: Normal: ............. < 150 mg/dL Borderline High: .... 150-199 mg/dL High: ............... 200-499 mg/dL Very High: .......... > 500 mg/dL * Source: National Cholesterol Education Program (NCEP) 39 Elevated levels of HbA1c suggest the need for more aggressive treatment of glycemia. The [place] Diabetes Association recommends that a primary goal of therapy should be a HbA1c of <7% and that physicians should re-evaluate the treatment regimen in patients with HbA1c values consistently >8%. 40 QUERY: Reflex add FT3? N QUERY: Reflex add FT4? Y 41 Vitamin D deficiency has been defined by the [place] [employer] and an Endocrine Society practice guideline as a level of serum 25-OH vitamin D less than 20 ng/mL (1,2). The Endocrine Society went on to further define vitamin D insufficiency as a level between 21 and 29 ng/mL (2). 1. IOM ([place] [employer]). 2010. Dietary reference intakes for calcium and D. [place]: The National Academies Press. 2. Kellie MF, Donald NC, Rossi JONES, et al. Evaluation, treatment, and prevention of vitamin D deficiency: an Endocrine Society clinical practice guideline. JCEM. 2010; 96(7):1911-30. Performed at: RN - [facility] [address] [id number] Hotel Front Office Manager: Joceline Herrera MD, Phone: [phone] 42 Note: Persistent reduction for 3 months or more in an eGFR <60 mL/min/1.73 m2 defines CKD. Patients with eGFR values >/=60 mL/min/1.73 m2 may also have CKD if evidence of persistent proteinuria is present. The original MDRD equation for estimated GFR is not valid for patients less than 18 years of age. Additional information may be found at www.kdoqi.org. 43 Reference Guidelines*: Desirable: ........... < 200 mg/dL Borderline High: ..... 200-239 mg/dL High: ................ >=240 mg/dL * The National Cholesterol Education Program (NCEP) 44 Reference Guidelines*: Low HDL: ..... < 40 mg/dL Normal: ..... 40-60 mg/dL Desirable: ... > 60 mg/dL *The National Cholesterol Education Program(NCEP) 45 Reference Guidelines*: Optimal:........... <100 mg/dL Near Optimal....... 100-129 mg/dL Borderline High.... 130-159 mg/dL High............... 160-189 mg/dL Very High.......... >=190 mg/dL * Source: National Cholesterol Education Program (NCEP) 46 Reference Guidelines*: Normal: ............. < 150 mg/dL Borderline High: .... 150-199 mg/dL High: ............... 200-499 mg/dL Very High: .......... > 500 mg/dL * Source: National Cholesterol Education Program (NCEP) 47 Vitamin D deficiency has been defined by the [place] [employer] and an Endocrine Society practice guideline as a level of serum 25-OH vitamin D less than 20 ng/mL (1,2). The Endocrine Society went on to further define vitamin D insufficiency as a level between 21 and 29 ng/mL (2). 1. IOM ([place] [employer]). 2010. Dietary reference intakes for calcium and D. [place]: The National Academies Press. 2. Kellie MF, Donald NC, Rossi JONES, et al. Evaluation, treatment, and prevention of vitamin D deficiency: an Endocrine Society clinical practice guideline. JCEM. 2010; 96(7):1911-30. Performed at: - [facility] [address] [id number] Hotel Front Office Manager: Joceline Herrera MD, Phone: [phone] 48 A1c value between 5.7% and 6.4% is considered at increased risk for diabetes. A1c value greater than 6.5 % is considered essentially diagnostic for Type II diabetes. Current guidelines recommend a treatment goal of <7% for diabetic patients. This method will measure glycosylated hemoglobin variants, HbS, HbG, HbH, HbWayne, HbC, HbE, etc. Other hemoglobin- opathies may give incorrect results with this test. 49 Note: Persistent reduction for 3 months or more in an eGFR <60 mL/min/1.73 m2 defines CKD. Patients with eGFR values >/=60 mL/min/1.73 m2 may also have CKD if evidence of persistent proteinuria is present. The original MDRD equation for estimated GFR is not valid for patients less than 18 years of age. Additional information may be found at www.[email or web address]. 50 QUERY: Reflex add FT3? QUERY: Reflex add FT4? 51 Vitamin D deficiency has been defined by the [place] [employer] and an Endocrine Society practice guideline as a level of serum 25-OH vitamin D less than 20 ng/mL (1,2). The Endocrine Society went on to further define vitamin D insufficiency as a level between 21 and 29 ng/mL (2). 1. IOM ([place] [employer]). 2010. Dietary reference intakes for calcium and D. [place]: The National Academies Press. 2. Kellie MF, Donald NC, Rossi JONES, et al. Evaluation, treatment, and prevention of vitamin D deficiency: an Endocrine Society clinical practice guideline. JCEM. 2010; 96(7):1911-30. Performed at: [facility] [address] [id number] Hotel Front Office Manager: Joceline Herrera MD, Phone: [phone] 52 A1c value between 5.7% and 6.4% is considered at increased risk for diabetes. A1c value greater than 6.5 % is considered essentially diagnostic for Type II diabetes. Current guidelines recommend a treatment goal of <7% for diabetic patients. This method will measure glycosylated hemoglobin variants, HbS, HbG, HbH, HbWayne, HbC, HbE, etc. Other hemoglobin- opathies may give incorrect results with this test. 53 QUERY: Add FT3 if TSH abnormal? FT3 N QUERY: Add FT4 if TSH Abnormal? FT4 Y 54 Note: Persistent reduction for 3 months or more in an eGFR <60 mL/min/1.73 m2 defines CKD. Patients with eGFR values >/=60 mL/min/1.73 m2 may also have CKD if evidence of persistent proteinuria is present. The original MDRD equation for estimated GFR is not valid for patients less than 18 years of age. Additional information may be found at www.kdoqi.org. 55 Vitamin D deficiency has been defined by the [place] [employer] and an Endocrine Society practice guideline as a level of serum 25-OH vitamin D less than 20 ng/mL (1,2). The Endocrine Society went on to further define vitamin D insufficiency as a level between 21 and 29 ng/mL (2). 1. IOM ([place] [employer]). 2010. Dietary reference intakes for calcium and D. [place]: The National Academies Press. 2. Kellie MF, Donald NC, Rossi JONES, et al. Evaluation, treatment, and prevention of vitamin D deficiency: an Endocrine Society clinical practice guideline. JCEM. 2010; 96(7):1911-30. Performed at: RN - [facility] [address] [id number] Hotel Front Office Manager: Joceline Herrera MD, Phone: [phone] 56 A1c value between 5.7% and 6.4% is considered at increased risk for diabetes. A1c value greater than 6.5 % is considered essentially diagnostic for Type II diabetes. Current guidelines recommend a treatment goal of <7% for diabetic patients. This method will measure glycosylated hemoglobin variants, HbS, HbG, HbH, HbWayne, HbC, HbE, etc. Other hemoglobin- opathies may give incorrect results with this test. 57 Glucose, Fast 98 mg/dL 1/2 Hr Glucose 159 mg/dL 1 Hr Glucose 171 (H) mg/dL 2 Hr Glucose PENDING FAST URINE GLU NEGATIVE % FAST URINE KET NEGATIVE 1/2HR URINE GLU NEGATIVE % 1/2HR URINE KET NEGATIVE 1HR URINE GLU NEGATIVE % 1HR URINE KET NEGATIVE 2HR URINE GLU PENDING 2HR URINE KET PENDING 58 Note: Persistent reduction for 3 months or more in an eGFR <60 mL/min/1.73 m2 defines CKD. Patients with eGFR values >/=60 mL/min/1.73 m2 may also have CKD if evidence of persistent proteinuria is present. The original MDRD equation for estimated GFR is not valid for patients less than 18 years of age. Additional information may be found at www.kdoqi.org. 59 A1c value between 5.7% and 6.4% is considered at increased risk for diabetes. A1c value greater than 6.5 % is considered essentially diagnostic for Type II diabetes. Current guidelines recommend a treatment goal of <7% for diabetic patients. This method will measure glycosylated hemoglobin variants, HbS, HbG, HbH, HbWayne, HbC, HbE, etc. Other hemoglobin- opathies may give incorrect results with this test. 60 QUERY: Add FT3 if TSH abnormal? FT3 QUERY: Add FT4 if TSH Abnormal? FT4 Y 61 Vitamin D deficiency has been defined by the [place] [employer] and an Endocrine Society practice guideline as a level of serum 25-OH vitamin D less than 20 ng/mL (1,2). The Endocrine Society went on to further define vitamin D insufficiency as a level between 21 and 29 ng/mL (2). 1. IOM ([place] [employer]). 2010. Dietary reference intakes for calcium and D. [place]: The National Academies Press. 2. Kellie MF, Donald NC, Rossi JONES, et al. Evaluation, treatment, and prevention of vitamin D deficiency: an Endocrine Society clinical practice guideline. JCEM. 2010; 96(7):1911-30. Performed at: RN - [facility] [address] [id number] Hotel Front Office Manager: Joceline Herrera MD, Phone: [phone] Procedures Date Code Description Status 11/18/2018 11552 Noninvasive Ear Or Pulse Oximetry For Oxygen Completed Saturation 11/18/2018 21573 EKG Tracing & Interpretation Completed 07/16/2018 01168 Mammography Unilateral Completed 07/16/2018 [id number] Mammogram Completed 03/22/2018 91959 Noninvasive Ear Or Pulse Oximetry For Oxygen Completed Saturation 03/22/2018 38747 Inhalation TX For Acute Airway Obstruction Completed W/Nebulizer/Inhaler 10/25/2017 [id number] Diabetic Retinal Eye Exam Completed 07/13/2017 89974 Bone Density Study, Single Photon Absorptiometry Completed 12/19/2016 61950 EKG Tracing & Interpretation Completed 03/16/2016 61438 Inhalation TX For Acute Airway Obstruction Completed W/Nebulizer/Inhaler 08/17/2015 35588 Noninvasive Ear Or Pulse Oximetry For Oxygen Completed Saturation 08/10/2015 84716 Inhalation TX For Acute Airway Obstruction Completed W/Nebulizer/Inhaler 11/18/2014 72388 EKG Tracing & Interpretation Completed 06/15/2014 28223 Pure Tone Hearing Test, Air Completed 11/26/2013 18610 Inhalation [place] For Acute Airway Obstruction Completed W/Nebulizer/Inhaler 09/27/2013 [id number] Colonoscopy Completed 06/11/2013 42372 EKG Tracing & Interpretation Completed 10/07/2012 80220 Inhalation TX For Acute Airway Obstruction Completed W/Nebulizer/Inhaler 10/07/2012 42393 Noninvasive Ear Or Pulse Oximetry For Oxygen Completed Saturation 10/03/2012 32695 Noninvasive Ear Or Pulse Oximetry For Oxygen Completed Saturation 10/03/2012 52933 Inhalation TX For Acute Airway Obstruction Completed W/Nebulizer/Inhaler 07/01/2012 04594 Remove Impacted Cerumen Completed 04/03/2011 41002 Screening Vision Test Completed 04/03/2011 42398 EKG Tracing & Interpretation Completed 04/03/2011 49895 Pure Tone-Air Condition Only Completed 07/26/2010 40734 Inhalation [place] For Acute Airway Obstruction Completed W/Nebulizer/Inhaler 11/17/2008 51461 EKG Tracing & Interpretation Completed 07/08/2007 22230 Screening Vision Test Completed 78192 Colonoscopy Flexible Diagnostic Completed Encounters Type Date Location Provider Dx Diagnosis Office Visit 11/18/2018 [facility] J06.9 Acute upper 2:15p respiratory infection, unspecified M94.0 Chondrocostal junction syndrome [Tietze] R07.89 Other chest pain I49.3 Ventricular premature depolarization Office Visit 2018 10:00a [facility] I10 Essential (primary) hypertension E78.49 Other hyperlipidemia K21.9 Gastro-esophageal reflux disease without esophagitis M16.9 Osteoarthritis of hip, unspecified Plan of Treatment Future Appointment(s):12/04/2018 11:00 am - [facility] 9:30 am - [facility]/25/2018 - [facility]J06.9 Acute upper respiratory infection, [id number] Chondrocostal junction syndrome [[place]ze]J02.9 Acute pharyngitis, unspecifiedNew Medication: Amoxicillin 875 mg - 1 by mouth twice a dayNew Labs:Culture Throat, Ordered: 09/14J44.9 Chronic obstructive pulmonary disease, [id number] WeaknessNew Labs:Basic Metabolic Panel, Ordered: 11/25/18CBC Auto Diff, Ordered: Vitamin B12 And Folate Serum, Ordered: 11/25/18Vitamin D Total 25(Oh), Ordered : 11/25/18Lipid Profile (Trig/Chol/HDL), Ordered: 11/25/18Liver Function Panel, Ordered: 11/25/18Hemoglobin A1c (Glyco HGB), Ordered: 11/25/18TSH (Thyroid Stim Horm), Ordered: 11/25/18
--- OUTSIDE RECORDS SUMMARY | 2018-12-14 14:09 | XMS REPORT | Continuity of Care Document ---
:1945 External Reference #:[id number] Author Name Terrence Ortiz Care Team Providers Name Role Phone Jagdish Means MD Primary Care Physician Unavailable Payers Date Identification Numbers Payment Provider Subscriber Effective: 2014 Policy Number: [id number] Medicare [employer] Group Name: Medicare [address] PayID: [id number] PAZ [place] [id number] Effective: 2014 Policy Number: [id number] Lifetime Benefit [employer] [place] [facility] [place] [address] [address] [place]: [facility] [place] [id number] Effective: 2003 Group Name: Workers' [employer] Kym Ceballos Onset: [address] [place] [address] Advance Directives Description No Information Available Problems [...] History Date Family Member(s) Observation Comments General [place] General multiple births General Stroke General Alcoholism General Arthritis General Bipolar Disorder General Depression General Anemia General Gastroesophageal Reflux Disease (GERD) General Glaucoma General Diverticulitis General Gout Father due to [place] () Mother due to Stroke () Siblings [...] Form Strength Qnty SIG Indications Ordering Provider Zantac 02/25/ Active Tablets 300mg 90tabs Take One Jagdish 2017 Tablet By Castellamaria ines Mouth AT os, Bedtime Exforge 08/24/ Active Tablets 10-160mg 90tabs Take One Jagdish 2015 Tablet By Castellan Mouth Every os, Day Vitamin D3 09/16/ Active Tablets 2000Unit 30tabs 1 by mouth Jagdish Super Strength 2016 every day Davis osMD Atorvastatin 05/21/ Active Tablets 10mg 90tabs Take One Jagdish Calcium 2015 Tablet By Castellan Mouth Every os, Day Pantoprazole 12/02/ Active Tablets DR 40mg 90tabs take one Jagdish Sodium 2014 tablet by Castellan mouth every os, day Amoxicillin 08/13/ Hx Tablets 500mg 20tabs 1 [...] 2015 - twice a day Castellan 09/19/ os, 2016 Zantac 12/15/ Hx Tablets 150mg 180tab one to pill K21.9 Jagdish 2015 - s twice a day Castellan 12/21/ os, 2015 Amoxicillin 09/23/ Hx Tablets 875mg 20tabs 1 by mouth J02.9 Jagdish 2016 - twice a day Castellan 12/15/ os, 2016 Melatonin 09/16/ Hx Capsules 5mg @ hs Jagdish 2015 - Castellan 06/20/ os, 2016 Levofloxacin 08/17/ [...] 2013 cough Vitamin D 06/11/ Hx Capsules [id number] 4caps take 1 790.6 Jagdish (Ergocalcifero 2012 - capsule by Davis tobias) 09/16/ mouth once os, 2015 weekly Benzonatate 10/07/ Hx Capsules 200mg 30caps one tid prn 786.2 Jagdish 2012 - cough Josieellan 09/11/ os, 2013 Proair HFA 10/07/ Hx Aerosol 108(90Base 1units 2 puffs q 4 786.2 Jagdish 2012 - ) mcg/Act hrs prn Josieellan 09/11/ os, 2013 Zithromax 10/03/ Hx Tablets 250mg 6tabs day number 466.0 Jagdish 2012 - one two Castellan 09/11/ qd,thendays os, 2013 two thru five one pill qd Vitamin D 06/10/ Hx Capsules [id number] 4caps take 1 268.9 Jagdish (Ergocalcifero 2011 - capsule by Davis tobias) 09/11/ mouth once os, 2013 weekly Erythromycin / Hx Ointment 5mg/GM Apply To Unknown 0000 - Sutures 06/20/ Four Times 2017 A Day For 7 10 Days Medications Administered in Office Medication Date Status Form Strength Qnty SIG Indications Ordering Provider Shingrix Administered Injection Unknown pharmacy 019 administered Immunizations CPT Code Status Date Vaccine Lot # 35022 Given 06/22/2018 Zoster (Shingles) Vaccine (HZV), Recombinant, Subunit, Adjuvanted 54058 Given 06/21/2018 Fluzone High Dose 45055 Given 06/20/2017 Pneumonia Vaccine 91058 Given 06/20/2017 Fluzone High Dose 72561 Given 06/19/2016 Pneumococcal Conjugate Vaccine 13 Valent For Intramuscular Use 90176 Given 06/19/2016 Fluzone High Dose 29413 Given 06/17/2015 Fluzone High Dose 27890 Given 06/15/2014 Fluzone High Dose 13310 Given 06/10/2012 Pneumonia Vaccine 80169 Given 10/26/2010 Zoster (Zostavax) 54176 Given 05/06/2009 Tdap - Tetanus/Diptheria/Acellular Pertussis 35042 Given 04/12/2000 Rabies Vaccine Intramuscular 37839 Given 04/09/2000 Rabies Vaccine Intramuscular 42457 Given 12/02/1999 Hepatitis B Lisa Adoles For Intramuscular Use 13384 Given 06/21/1999 Hepatitis B Lisa Adoles For Intramuscular Use 84912 Given 05/24/1999 Hepatitis B Lisa Adoles For Intramuscular Use Vital Signs Date Vital Result Comment 11/18/2018 2:29pm Weight 171.25 lb Heart Rate [...] Date Facility Test Result H/L Range Note Liver Function Panel 06/14/2018 N2N/CCD Import Alb/Glob 1.0 ratio 1 Albumin 3.9 g/dL 3.4-5 Alkaline Phosphatase 83 U/L 45-117 Bilirubin,Direct 0.1 mg/dL 0-0.2 Bilirubin,Indirect 0.3 mg/dL 0-0.9 Bilirubin,Total 0.4 mg/dL 0.2-1 Globulin 3.9 g/dL 1.9-4.3 SGPT/Alt 24 U/L 12-78 Sgot/Ast 16 U/L 15-37 Total Protein 7.8 g/dL 6.4-8.2 Laboratory test 06/14/2018 N2N/CCD Import Thyroid Stim 1.51 uIU/mL 0.3- 4.2 finding Hormone Vitamin D,25-Hydroxy 57.9 ng/mL 30-100 [...] 3.9 mmol/L 3.5-5.1 Sodium 143 mmol/L 136-145 Lipid Profile (Trig/Chol/HDL) 06/14/2018 N2N/CCD Import Cholesterol 176 mg/ dL 4 HDL Cholesterol 73 mg/dL 5 LDL-Cholesterol 79 mg/dL 6 Triglycerides 119 mg/dL 7 CBC Auto Diff 06/14/2018 N2N/CCD Import Bas% [...] 30.8-34.3 Mean Platelet Volume 10.3 fL 8.9-12.4 [place] # 0.41 K/uL 0.3-0.9 [place] % 6.8 % 4.3-13.2 Neut# 3.59 K/uL 1.8-7 Neut% 59.9 % 40.4-72.8 Platelet Count 301 K/uL 155-360 Red Blood Count 4.04 M/uL 3.9-5.4 Red Cell Distri Width %CV 13.8 % 11.7-14.4 Red Cell Distri Width SD 46.2 fl 3-47 White Blood Count 6.0 K/uL 3.1-10.7 Liver Function Panel 03/14/2018 N2N/CCD Import Alb/Glob 1.1 ratio 8 Albumin 3.9 g/dL 3.4-5 Alkaline Phosphatase 83 U/L 45-117 Bilirubin,Direct 0.2 mg/dL 0-0.2 Bilirubin,Indirect 0.2 mg/dL 0-0.9 Bilirubin,Total 0.4 mg/dL 0.2-1 Globulin 3.7 g/dL 1.9-4.3 SGPT/Alt 28 U/L 12-78 Sgot/Ast 18 U/L 15-37 Total Protein 7.6 g/dL 6.4-8.2 Basic Metabolic Panel 03/14/2018 N2N/CCD Import Anion Gap 7 mEq/L Low 8- 16 BUN 18 mg/dL 7-18 BUN/Creat 20.0 ratio [...] 30.8-34.3 Mean Platelet Volume 9.8 fL 8.9-12.4 [place] # 0.37 K/uL 0.3-0.9 [place] % 6.9 % 4.3-13.2 Neut# 3.29 K/uL [...] 77 mg/dL 12 Triglycerides 105 mg/dL 13 Laboratory test 08/10/2017 N2N/CCD Import Hepatitis C Nonreactive finding Antibody Liver Function Panel 06/14/2017 N2N/CCD Import Alb/Glob 1.0 ratio 14 Albumin 3.8 g/dL 3.4-5 Alkaline Phosphatase 88 U/L 45-117 Bilirubin,Direct 0.1 mg/dL 0-0.2 Bilirubin,Indirect 0.3 mg/dL 0-0.9 Bilirubin,Total 0.4 mg/dL 0.2-1 Globulin 3.8 g/dL 1.9-4.3 SGPT/Alt 21 U/L 12-78 Sgot/Ast 15 U/L 15-37 Total Protein 7.6 g/dL 6.4-8.2 Basic Metabolic Panel 06/14/2017 N2N/CCD Import Anion Gap 7 mEq/L Low 8- 16 BUN 16 mg/dL 7-18 BUN/Creat 17.7 ratio [...] 30.8-34.3 Mean Platelet Volume 9.6 fL 8.9-12.4 [place] # 0.35 K/uL 0.3-0.9 [place] % 6.1 % 4.3-13.2 Neut# 3.47 K/uL [...] 63 mg/dL 18 Triglycerides 124 mg/dL 19 Basic Metabolic Panel 12/18/2016 N2N/CCD Import Anion [...] 142 mmol/L 136-145 CBC Auto Diff 12/18/2016 N2N/CCD Import Bas% 0.7 % 0-1.1 Baso # 0.04 K/uL 0-0.1 Eo% 0.9 % 0-6.6 Eos # 0.05 K/uL 0-0.5 Hematocrit 38.1 % 36-46.1 Hemoglobin 12.5 gm/dL 11.6-15.8 Lymph # 2.06 K/uL 1-4 Lymph % 38.1 % 20-42 Mean Cell Volume 89.0 fl 80.9-99 Mean Corpuscular HGB 29.2 pg 25.9-32.7 Mean Corpuscular HGB Conc 32.8 g/dL 30.8-34.3 Mean Platelet Volume 10.1 fL 8.9-12.4 [place] # 0.37 K/uL 0.3-0.9 [place] % 6.8 % 4.3-13.2 Neut# 2.89 K/uL 1.8-7 Neut% 53.5 % 40.4-72.8 Platelet Count 301 K/uL 150-400 Red Blood Count 4.28 M/uL 3.9-5.4 Red Cell Distri Width %CV 14.3 % 11.7-14.4 Red Cell Distri Width SD 45.7 fl 3-47 White Blood Count 5.4 K/uL 3.1-10.7 Lipid Profile (Trig/Chol/HDL) 12/18/2016 N2N/CCD Import Cholesterol 197 mg/ dL 22 HDL Cholesterol 75 mg/dL 23 LDL-Cholesterol 99 mg/dL 24 Triglycerides 117 mg/dL 25 Liver Function Panel 12/18/2016 N2N/CCD Import Alb/Glob 1.0 ratio Albumin 4.0 g/dL 3.4-5 Alkaline Phosphatase 104 U/L 45-117 Bilirubin,Direct 0.1 mg/dL 0-0.2 Bilirubin,Indirect 0.4 mg/dL 0-0.9 Bilirubin,Total 0.5 mg/dL 0.2-1 Globulin 4.0 g/dL 1.9-4.3 SGPT/Alt 26 U/L 12-78 Sgot/Ast 14 U/L Low 15-37 26 Total Protein 8.0 g/dL 6.4-8.2 Imaging finding 07/10/2016 N2N/CCD Import bilateral mammogram <pending> Liver Function Tests 06/15/2016 N2N/CCD Import @[facility] Pat Id: [id number] @[facility] Req #: [id number] 1 Alb/Glob 1.1 ratio Albumin 3.7 g/dL 3.4-5 Alkaline Phosphatase 80 U/L 45-117 Bilirubin,Direct 0.1 mg/dL 0-0.2 Bilirubin,Indirect 0.3 mg/dL 0-0.9 Bilirubin,Total 0.4 mg/dL 0.2-1 Globulin 3.5 g/dL 1.9-4.3 Is Patient Fasting? Fasting SGPT/Alt 20 U/L 12-78 Sgot/Ast 16 U/L 15-37 Total Protein 7.2 g/dL 6.4-8.2 Basic Metabolic Panel 06/15/2016 N2N/CCD Import @[facility] Pat Id: [id number] @[facility] Req #: [id number] 1 Anion Gap 7 mEq/L Low 8-16 [...] 136-145 CBS W/Automated Diff 06/15/2016 N2N/CCD Import @[facility] Pat Id: [id number] @[facility] Req #: [id number] 1 Bas% 0.8 % 0-1.1 Baso # 0.04 K/uL 0-0.1 Eo% 1.2 % 0-6.6 Eos # 0.06 K/uL 0-0.5 Hematocrit 36.3 % 36-46.1 Hemoglobin 11.9 gm/dL 11.6-15.8 Lymph # 1.55 K/uL Low 1.8-7 Lymph % 32.2 % 17-46.1 Mean Cell Volume 92.8 fl 80.9-99 Mean Corpuscular HGB 30.4 pg 25.9-32.7 Mean Corpuscular HGB Conc 32.8 g/dL 30.8-34.3 Mean Platelet Volume 9.9 fL 8.9-12.4 [place] # 0.31 K/uL 0.3-0.9 [place] % 6.4 % 4.3-13.2 Neut# 2.86 K/uL 1.8-7 Neut% 59.4 % 40.4-72.8 Platelet Count 313 K/uL 155-360 Red Blood Count 3.91 M/uL 3.9-5.4 Red Cell Distri Width %CV 13.5 % 11.7-14.4 Red Cell Distri Width SD 44.8 fl 3-47 White Blood Count 4.8 K/uL 3.1-10.7 LDL Cholesterol Profile 06/15/2016 N2N/CCD Import @[facility] Pat Id: [id number] @[facility] Req #: [id number] 1 Cholesterol 172 mg/dL 29 HDL Cholesterol 71 mg/dL 30 Is Patient Fasting? Fasting LDL-Cholesterol 80 mg/dL 31 Triglycerides 106 mg/dL 32 Laboratory test 09/23/2015 N2N/CCD Import Throat Strep [...] 30.8-34.3 Mean Platelet Volume 10.1 fL 8.9-12.4 [place] # 0.44 K/uL 0.3-0.9 [place] % 7.5 % 4.3-13.2 Neut# 3.52 K/uL 1-7 Neut% 60.4 % 40.4-72.8 Platelet Count 289 K/uL 155-360 Red Blood Count 3.79 M/uL Low 3.9-5.4 Red Cell Distri Width %CV 13.9 % 11.7-14.4 Red Cell Distri Width SD 44.2 fl 3-47 White Blood Count 5.8 K/uL 3.1-10.7 Liver Function Tests 06/11/2015 N2N/[employer] Import Alb/Glob 0.9 ratio Albumin 3.6 g/dL 3.4-5 Alkaline Phosphatase 100 U/L 45-117 Bilirubin,Direct < 0.1 mg/dL 0-0.2 Bilirubin,Indirect 0.3 mg/dL 0-0.9 Bilirubin,Total 0.4 mg/dL 0.2-1 Globulin 3.8 g/dL 1.9-4.3 SGPT/Alt 32 U/L 12-78 Sgot/Ast 15 U/L 15-37 Total Protein 7.4 g/dL 6.4-8.2 LDL Cholesterol Profile 06/11/2015 [employer] Import Cholesterol 181 mg/dL 35 HDL Cholesterol 74 mg/dL 36 LDL-Cholesterol 83 mg/dL 37 Triglycerides 121 mg/dL 38 Imaging finding 06/25/2014 [employer] Import bilateral screening <pending> mammogram CBS W/Automated 06/12/2014 [employer] Import Bas% 1.0 % 0-1.1 Diff Baso # 0.05 K/uL 0-0.1 Eo% 2.0 % 0-6.6 Eos # 0.10 K/uL 0-0.5 Hematocrit 35.7 % Low 36-46.1 Hemoglobin 11.6 gm/dL 11.6-15.8 Lymph # 1.98 K/uL 0.8-3.4 Lymph % 39.4 % 17-46.1 Mean Cell Volume 89.0 fl 80.9-99 Mean Corpuscular HGB 28.9 pg 25.9-32.7 Mean Corpuscular HGB Conc 32.5 g/dL 30.8-34.3 Mean Platelet Volume 9.7 fL 8.9-12.4 [place] # 0.31 K/uL 0.3-0.9 [place] % 6.2 % 4.3-13.2 Neut# 2.58 K/uL 1-7 Neut% 51.4 % 40.4-72.8 Platelet Count 271 K/uL 155-360 Red Blood Count 4.01 M/uL 3.9-5.4 Red Cell Distri Width %CV 13.5 % 11.7-14.4 Red Cell Distri Width SD 43.0 fl 3-47 White Blood Count 5.0 K/uL 3.1-10.7 Basic Metabolic Panel 06/12/2014 [employer] Import Anion Gap 9 mEq/L 8-16 BUN 17 mg/dL 7-18 BUN/Creat 21.2 ratio Calcium 8.9 mg/dL 8.5-10.1 Carbon Dioxide 26 mmol/L 21-32 Chloride 111 mmol/L High 98-107 Creatinine 0.8 mg/dL 0.6-1.3 Glom Filtration Rate, Estimate >60 mL/min Glucose 91 mg/dL 74-106 If >60 mL/min 39 Potassium 3.9 mmol/L 3.5-5.1 Sodium 142 mmol/L 136-145 LDL Cholesterol Profile 06/12/2014 [employer] Import Cholesterol 188 mg/dL 40 HDL Cholesterol 78 mg/dL 41 LDL-Cholesterol 87 mg/dL 42 Triglycerides 115 mg/dL 43 Liver Function Tests 06/12/2014 [employer] Import Alb/Glob 0.9 ratio Albumin 3.4 g/dL 3.4-5 Alkaline Phosphatase 86 U/L 45-117 Bilirubin,Direct 0.1 mg/dL 0-0.2 Bilirubin,Indirect 0.2 mg/dL 0-0.9 Bilirubin,Total 0.3 mg/dL 0.2-1 Globulin 3.6 g/dL 1.9-4.3 SGPT/Alt 22 U/L 12-78 Sgot/Ast 12 U/L Low 15-37 Total Protein 7.0 g/dL 6.4-8.2 Laboratory test 06/12/2014 [employer] Import Glycohemoglobin (A1c) 6.1 % 4.2-6.3 44 finding TSH Reflex FT4 and/or FT3 1.59 uIU/mL 0.36-3.74 45 Vitamin D,25-Hydroxy 36.1 ng/mL 30-100 46 eAG 128 mg/dL Laboratory test 09/03/2013 N2N/CCD Import Vitamin 38.7 ng/mL 30-100 47 finding D,25-Hydroxy Imaging finding 06/23/2013 N2N/CCD Import bilateral screening <pending> mamogram Liver Function 06/07/2013 N2N/CCD Import Alb/Glob 1.1 ratio Tests Albumin 4.0 g/dL 3.5-5 Alkaline Phosphatase 93 U/L 50-136 Bilirubin,Direct 0.1 mg/dL 0.1-0.4 Bilirubin,Indirect 0.4 mg/dL 0-0.9 Bilirubin,Total 0.5 mg/dL 0.2-1.2 Globulin 3.7 g/dL 1.9-4.3 SGPT/Alt 22 U/L Low 30-65 Sgot/Ast 13 U/L Low 16-40 Total Protein 7.7 g/dL 6.3-8 Laboratory test finding 06/07/2013 N2N/CCD Import Anion Gap 11 mEq/L 8- 16 BUN 17 mg/dL 5-23 BUN/Creat 24.2 ratio [...] 30.8-34.3 Mean Platelet Volume 10.3 fL 8.9-12.4 [place] # 0.36 K/uL 0.3-0.9 [place] % 6.3 % 4.3-13.2 Neut# 3.48 K/uL 1-7 Neut% 60.6 % 40.4-72.8 Platelet Count 298 K/uL 155-360 Red Blood Count 4.09 M/uL 3.9-5.4 Red Cell Distri Width %CV 13.2 % 11.7-14.4 Red Cell Distri Width SD 42.9 fl 3-47 White Blood Count 5.7 K/uL 3.1-10.7 LDL Cholesterol Profile 06/07/2013 [employer] Import Cholesterol 188 mg/dL 120-200 HDL Cholesterol 65 mg/dL 29-83 LDL-Cholesterol 93 mg/dL 62-185 Triglycerides 148 mg/dL 16-231 Laboratory test 01/04/2013 [employer] Import Glycohemoglobin (A1c) 6.3 % High 4.8-6 52 finding TSH Reflex FT4 and/or FT3 1.95 uIU/mL 0.49-4.67 53 eAG 134 mg/dL Basic Metabolic Panel 01/04/2013 [employer] Import Anion Gap 12 mEq/L 8-16 BUN 14 mg/dL 5-23 BUN/Creat 17.5 ratio Calcium 9.4 mg/dL 8.5-10.1 Carbon Dioxide 26 mEq/L 18-29 Chloride 108 mmol/L High 98-107 Creatinine 0.8 mg/dL 0.5-1.4 Glom Filtration Rate, Estimate >60 mL/min Glucose 88 mg/dL 76-115 If >60 mL/min 54 Potassium 4.2 mmol/L 3.5-5.1 Sodium 142 mmol/L 136-145 LDL Cholesterol 01/04/2013 [employer] Import Cholesterol 202 mg/dL High 120- 200 Profile HDL Cholesterol 87 mg/dL High 29-83 LDL-Cholesterol 94 mg/dL 62-185 Triglycerides 106 mg/dL 16-231 Liver Function Tests 01/04/2013 N2N/CCD Import Alb/Glob 1.1 ratio Albumin 3.8 g/dL 3.5-5 Alkaline Phosphatase 86 U/L 50-136 Bilirubin,Direct 0.1 mg/dL 0.1-0.4 Bilirubin,Indirect 0.5 mg/dL 0-0.9 Bilirubin,Total 0.6 mg/dL 0.2-1.2 Globulin 3.6 g/dL 1.9-4.3 SGPT/Alt 23 U/L Low 30-65 Sgot/Ast 12 U/L Low 16-40 Total Protein 7.4 g/dL 6.3-8 Laboratory test 08/02/2012 N2N/CCD Import Vitamin D,25-Hydroxy 41.5 ng/mL 30-100 55 finding Laboratory test 05/29/2012 N2N/CCD Import 2 Hour GTT See Note 56 finding mg/dL Laboratory test 05/29/2012 N2N/CCD Import Glycohemoglobin 6.4 % High 4.8- 6 57 finding (A1c) eAG 137 mg/dL Laboratory test 05/25/2012 N2N/CCD Import Glycohemoglobin (A1c) 6.5 % High 4.8-6 58 finding TSH Reflex FT4 and/or FT3 1.69 uIU/mL 0.49-4.67 59 Vitamin D,25-Hydroxy 28.8 ng/mL Low 30-100 60 eAG 140 mg/dL Basic Metabolic Panel 05/25/2012 N2N/CCD Import Anion Gap 12 mEq/L 8-16 BUN 12 mg/dL 5-23 BUN/Creat 15.0 ratio Calcium 9.2 mg/dL 8.5-10.1 Carbon Dioxide 25 mEq/L 18-29 Chloride 108 mmol/L High 98-107 Creatinine 0.8 mg/dL 0.5-1.4 Glom Filtration Rate, Estimate >60 mL/min Glucose 90 mg/dL 76-115 If >60 mL/min 61 Potassium 3.7 mmol/L 3.5-5.1 Sodium 141 mmol/L 136-145 CBC W/Automated Diff 05/25/2012 N2N/CCD Import Bas% [...] 30.8-34.3 Mean Platelet Volume 9.9 fL 8.9-12.4 [place] # 0.39 K/uL 0.3-0.9 [place] % 6.8 % 4.3-13.2 Neut# 3.21 K/uL 1-7 Neut% 56.2 % 40.4-72.8 Platelet Count 276 K/uL 155-360 Red Blood Count 4.06 M/uL 3.9-5.4 Red Cell Distri Width %CV 13.7 % 11.7-14.4 Red Cell Distri Width SD 42.8 fl 3-47 White Blood Count 5.7 K/uL 3.1-10.7 LDL Cholesterol Profile 05/25/2012 N2N/CCD Import Cholesterol 193 mg/dL 120-200 HDL Cholesterol 71 mg/dL 29-83 LDL-Cholesterol 90 mg/dL 62-185 Triglycerides 161 mg/dL 16-231 Liver Function Tests 05/25/2012 N2N/CCD Import Alb/Glob 1.1 ratio Albumin 3.7 g/dL 3.5-5 Alkaline Phosphatase 69 U/L 50-136 Bilirubin,Direct 0.1 mg/dL 0.1-0.4 Bilirubin,Indirect 0.4 mg/dL 0-0.9 Bilirubin,Total 0.5 mg/dL 0.2-1.2 Globulin 3.5 g/dL 1.9-4.3 SGPT/Alt 25 U/L Low 30-65 Sgot/Ast 12 U/L Low 16-40 Total Protein 7.2 g/dL 6.3-8 1 E78.5,I10,R53.83 2 Vitamin D deficiency has been defined by the [place] [employer] and an Endocrine Society practice guideline as a level of serum 25-OH vitamin D less than 20 ng/mL (1,2). The Endocrine Society went on to further define vitamin D insufficiency as a level between 21 and 29 ng/mL (2). 1. IOM ([place] [employer]). 2010. Dietary reference intakes for calcium and D. [place]: The National Academies Press. 2. Kellie MF, Donald YOUSIF, Rossi JONES, et al. Evaluation, treatment, and prevention of vitamin D deficiency: an Endocrine Society clinical practice guideline. JCEM. 2010; 96(7):1911-30. Performed at: RN - [facility] [address] [id number] [employer] Specialist: Joceline Herrera MD, Phone: [phone] Note: Persistent reduction for 3 months [...] Source: National Cholesterol Education Program (NCEP) 39 Note: Persistent reduction for 3 months or more in an eGFR <60 mL/min/1.73 m2 defines CKD. Patients with eGFR values >/=60 mL/min/1.73 m2 may also have CKD if evidence of persistent proteinuria is present. The original MDRD equation for estimated GFR is not valid for patients less than 18 years of age. Additional information may be found at www.kdoqi.org. 40 Reference Guidelines*: Desirable: ........... < 200 mg/dL Borderline High: ..... 200-239 mg/dL High: ................ >=240 mg/dL * The National Cholesterol Education Program (NCEP) 41 Reference Guidelines*: Low HDL: ..... < 40 mg/dL Normal: ..... 40-60 mg/dL Desirable: ... > 60 mg/dL *The National Cholesterol Education Program(NCEP) 42 Reference Guidelines*: Optimal:........... <100 mg/dL Near Optimal....... 100-129 mg/dL Borderline High.... 130-159 mg/dL High............... 160-189 mg/dL Very High.......... >=190 mg/dL * Source: National Cholesterol Education Program (NCEP) 43 Reference Guidelines*: Normal: ............. < 150 mg/dL Borderline High: .... 150-199 mg/dL High: ............... 200-499 mg/dL Very High: .......... > 500 mg/dL * Source: National Cholesterol Education Program (NCEP) 44 Elevated levels of HbA1c suggest the need for more aggressive treatment of glycemia. The [place] Diabetes Association recommends that a primary goal of therapy should be a HbA1c of <7% and that physicians should re-evaluate the treatment regimen in patients with HbA1c values consistently >8%. 45 QUERY: Reflex add FT3? N QUERY: Reflex add FT4? Y 46 Vitamin D deficiency has been defined by the [place] [employer] and an Endocrine Society practice guideline as a level of serum 25-OH vitamin D less than 20 ng/mL (1,2). The Endocrine Society went on to further define vitamin D insufficiency as a level between 21 and 29 ng/mL (2). 1. IOM ([place] [employer]). 2010. Dietary reference intakes for calcium and D. [place]: The National [employer]. 2. Donald Keller, Rossi JONES et al. Evaluation, treatment, and prevention of vitamin D deficiency: an Endocrine Society clinical practice guideline. JCEM. 2010; 96(7):1911-30. Performed at: - [facility] [address] [id number] [employer] Specialist: Joceline Herrera MD, Phone: [phone] Vitamin D deficiency has been defined by the [place] [employer] and an Endocrine Society practice guideline as a level of serum 25-OH vitamin D less than 20 ng/mL (1,2). The Endocrine Society went on to further define vitamin D insufficiency as a level between 21 and 29 ng/mL (2). 1. IOM ([place]). 2010. Dietary reference intakes for calcium and D. [place]: The National Academies Press. 2. Donald Keller, Rossi JONES et al. Evaluation, treatment, and prevention of vitamin D deficiency: an Endocrine Society clinical practice guideline. JCEM. 2010; 96(7):1911-30. Performed at: [facility] [id number] [employer] Specialist: Joceline Herrera MD, Phone: [phone] A1c value between 5.7% and 6.4% [...] D deficiency has been defined by the [place] [employer] [place] and an Endocrine Society practice guideline as a level of serum 25-OH vitamin D less than 20 ng/mL (1,2). The Endocrine Society went on to further define vitamin D insufficiency as a level between 21 and 29 ng/mL (2). 1. IOM ([place]). 2010. Dietary reference intakes for calcium and D. [place]: The National Academies Press. 2. Kellie MF, Donald [place], Rossi JONES, et al. Evaluation, treatment, and prevention of vitamin D deficiency: an Endocrine Society clinical practice guideline. JCEM. 2010; 96(7):1911-30. Performed at: RN - [facility] [address] [id number] [employer] Specialist: Joceline Herrera MD, Phone: [phone] A1c value between 5.7% and 6.4% [...] D deficiency has been defined by the [place] [employer] and an Endocrine Society practice guideline as a level of serum 25-OH vitamin D less than 20 ng/mL (1,2). The Endocrine Society went on to further define vitamin D insufficiency as a level between 21 and 29 ng/mL (2). 1. IOM ([place] [employer]). 2010. Dietary reference intakes for calcium and D. [place]: The National Academies Press. 2. Kellie CAMACHO, Donald YOUSIF, Rossi JONES, et al. Evaluation, treatment, and prevention of vitamin D deficiency: an Endocrine Society clinical practice guideline. JCEM. 2010; 96(7):1911-30. Performed at: RN - [facility] [address] [id number] [employer] Specialist: Joceline Herrera MD, Phone: [phone] Glucose, Fast 98 mg/dL 1/2 Hr Glucose 159 mg/dL 1 Hr Glucose 171 (H) mg/dL 2 Hr Glucose PENDING FAST URINE GLU NEGATIVE % FAST URINE KET NEGATIVE 1/2HR URINE GLU NEGATIVE % 1/2HR URINE KET NEGATIVE 1HR URINE GLU NEGATIVE % 1HR URINE KET NEGATIVE 2HR URINE GLU PENDING 2HR URINE KET PENDING 57 A1c value between 5.7% and 6.4% is considered at increased risk for diabetes. A1c value greater than 6.5 % is considered essentially diagnostic for Type II diabetes. Current guidelines recommend a treatment goal of <7% for diabetic patients. This method will measure glycosylated hemoglobin variants, HbS, HbG, HbH, HbWayne, HbC, HbE, etc. Other hemoglobin- opathies may give incorrect results with this test. 58 A1c value between 5.7% and 6.4% is considered at increased risk for diabetes. A1c value greater than 6.5 % is considered essentially diagnostic for Type II diabetes. Current guidelines recommend a treatment goal of <7% for diabetic patients. This method will measure glycosylated hemoglobin variants, HbS, HbG, HbH, HbWayne, HbC, HbE, etc. Other hemoglobin- opathies may give incorrect results with this test. 59 QUERY: Add FT3 if TSH abnormal? FT3 QUERY: Add FT4 if TSH Abnormal? FT4 Y 60 Vitamin D deficiency has been defined by the [place] [employer] and an Endocrine Society practice guideline as a level of serum 25-OH vitamin D less than 20 ng/mL (1,2). The Endocrine Society went on to further define vitamin D insufficiency as a level between 21 and 29 ng/mL (2). 1. IOM ([place] [employer]). 2010. Dietary reference intakes for calcium and D. [place]: The National Academies Press. 2. Kellie MF, Donald YOUSIF, Rossi JONES, et al. Evaluation, treatment, and prevention of vitamin D deficiency: an Endocrine Society clinical practice guideline. JCEM. 2010; 96(7):1911-30. Performed at: RN - [facility] [address] [id number] [employer] Specialist: Joceline Herrera MD, Phone: [phone] Note: Persistent reduction for 3 months or more in an eGFR <60 mL/min/1.73 m2 defines CKD. Patients with eGFR values >/=60 mL/min/1.73 m2 may also have CKD if evidence of persistent proteinuria is present. The original MDRD equation for estimated GFR is not valid for patients less than 18 years of age. Additional information may be found at [email or web address]. Procedures Date Code Description Status 11/18/2018 70025 Noninvasive Ear Or Pulse Oximetry For Oxygen Completed Saturation 11/18/2018 35954 EKG Tracing & Interpretation Completed 07/16/2018 69451 Mammography Unilateral Completed 07/16/2018 26016956 Mammogram Completed 03/22/2018 78731 Noninvasive Ear Or Pulse Oximetry For Oxygen Completed Saturation 03/22/2018 22465 Inhalation [place] For Acute Airway Obstruction Completed W/Nebulizer/Inhaler 10/25/2017 770718248 Diabetic Retinal Eye Exam Completed 07/13/2017 34522 Bone Density Study, Single Photon Absorptiometry Completed 12/19/2016 39776 EKG Tracing & Interpretation Completed 03/16/2016 67120 Inhalation [place] For Acute Airway Obstruction Completed W/Nebulizer/Inhaler 08/17/2015 92801 Noninvasive Ear Or Pulse Oximetry For Oxygen Completed Saturation 08/10/2015 47318 Inhalation [place] For Acute Airway Obstruction Completed W/Nebulizer/Inhaler 11/18/2014 22341 EKG Tracing & Interpretation Completed 06/15/2014 80128 Pure Tone Hearing Test, Air Completed 11/26/2013 85672 Inhalation [place] For Acute Airway Obstruction Completed W/Nebulizer/Inhaler 09/27/2013 24762909 Colonoscopy Completed 06/11/2013 16498 EKG Tracing & Interpretation Completed 10/07/2012 22346 Inhalation [place] For Acute Airway Obstruction Completed W/Nebulizer/Inhaler 10/07/2012 75260 Noninvasive Ear Or Pulse Oximetry For Oxygen Completed Saturation 10/03/2012 98803 Noninvasive Ear Or Pulse Oximetry For Oxygen Completed Saturation 10/03/2012 96604 Inhalation TX For Acute Airway Obstruction Completed W/Nebulizer/Inhaler 07/01/2012 54210 Remove Impacted Cerumen Completed 04/03/2011 31332 Screening Vision Test Completed 04/03/2011 64323 EKG Tracing & Interpretation Completed 04/03/2011 19106 Pure Tone-Air Condition Only Completed 07/26/2010 93962 Inhalation [place] For Acute Airway Obstruction Completed W/Nebulizer/Inhaler 11/17/2008 48107 EKG Tracing & Interpretation Completed 07/08/2007 61492 Screening Vision Test Completed 07847 Colonoscopy Flexible Diagnostic Completed Encounters Type Date Location Provider Dx Diagnosis Office Visit 2018 [facility] I10 Essential ( primary) 10:00a hypertension E78.49 Other hyperlipidemia K21.9 Gastro-esophageal reflux disease without esophagitis M16.9 Osteoarthritis of hip, unspecified Plan of Treatment Future Appointment(s):02/19/2019 9:30 am - [facility] at [facility] - C[facility] PaJ06.9 Acute upper respiratory infection, zsdcwnkczmmC00.0 Chondrocostal junction syndrome [Tietze]R07.89 Other chest painI49.3 Ventricular premature depolarization
--- OUTSIDE RECORDS SUMMARY | 2018-12-14 14:09 | XMS REPORT | Continuity of Care Document ---
:1945 External Reference #:[id number] Author Name Renetta Becerra Care Team Providers Name Role Phone Jagdish Means MD Primary Care Physician Unavailable Payers Date Identification Numbers Payment Provider Subscriber Effective: 2014 Policy Number: [id number] Medicare Kym Ceballos Group Name: Medicare [address] PayID: [id number] [place] [phone] Effective: 2014 Policy Number: [id number] Lifetime Benefit Kym Ceballos Solution Group Name: [facility] [address] [address] PayID: [facility] [place] [phone] Effective: 2003 Group Name: Workers' [employer] Kym Ceballos Onset: [address] [place] [address] Advance Directives Description No Information Available Problems [...] History Date Family Member(s) Observation Comments General [place] General multiple births General Stroke General Alcoholism General Arthritis General Bipolar Disorder General Depression General Anemia General Gastroesophageal Reflux Disease (GERD) General Glaucoma General Diverticulitis General Gout Father due to [place] () Mother due to Stroke () Siblings [...] 90tabs Take One Jagdish 2017 Tablet By Castellan Mouth AT os, Bedtime Exforge 08/24/ Active Tablets 10-160mg 90tabs Take One Jagdish 2015 Tablet By Castellan Mouth Every os, Day Vitamin D3 09/16/ Active Tablets 2000Unit 30tabs 1 by mouth Jagdish Super Strength 2016 every day Davis os, Atorvastatin 05/21/ Active Tablets 10mg 90tabs Take [...] 2013 cough Vitamin D 06/11/ Hx Capsules 54524Wkze 4caps take 1 790.6 Jagdish (Ergocalcifero 2012 [...] pill qd Vitamin D 06/10/ Hx Capsules 82186Wvdg 4caps take 1 268.9 Jagdish (Ergocalcifero 2011 - capsule by Davis tobias) 09/11/ mouth once os, 2013 weekly Erythromycin / Hx Ointment 5mg/GM Apply To Unknown 0000 - Sutures 06/20/ Four Times 2016 A Day For 7 10 Days Medications Administered in Office Medication Date Status Form Strength Qnty SIG Indications Ordering Provider Shingrix Administered Injection Unknown pharmacy 019 administered Immunizations CPT Code Status Date Vaccine Lot # 16628 Given 06/22/2018 Zoster (Shingles) Vaccine (HZV), Recombinant, Subunit, Adjuvanted 70804 Given 06/21/2018 Fluzone High Dose 33917 Given 06/20/2017 Pneumonia Vaccine 72552 Given 06/20/2017 Fluzone High Dose 43052 Given 06/19/2016 Pneumococcal Conjugate Vaccine 13 Valent For Intramuscular Use 10247 Given 06/19/2016 Fluzone High Dose 19819 Given 06/17/2015 Fluzone High Dose 62810 Given 06/15/2014 Fluzone High Dose 81288 Given 06/10/2012 Pneumonia Vaccine 57654 Given 10/26/2010 Zoster (Zostavax) 14177 Given 05/06/2009 Tdap - Tetanus/Diptheria/Acellular Pertussis 03492 Given 04/12/2000 Rabies Vaccine Intramuscular 75175 Given 04/09/2000 Rabies Vaccine Intramuscular 80558 Given 12/02/1999 Hepatitis B Lisa Adoles For Intramuscular Use 07612 Given 06/21/1999 Hepatitis B Lisa Adoles For Intramuscular Use 86453 Given 05/24/1999 Hepatitis B Lisa Adoles For [...] 30.8-34.3 Mean Platelet Volume 10.3 fL 8.9-12.4 [place] # 0.41 K/uL 0.3-0.9 [place] % 6.8 % 4.3-13.2 Neut# 3.59 K/uL [...] 30.8-34.3 Mean Platelet Volume 9.8 fL 8.9-12.4 [place] # 0.37 K/uL 0.3-0.9 [place] % 6.9 % 4.3-13.2 Neut# 3.29 K/uL [...] 30.8-34.3 Mean Platelet Volume 9.6 fL 8.9-12.4 [place] # 0.35 K/uL 0.3-0.9 [place] % 6.1 % 4.3-13.2 Neut# 3.47 K/uL [...] 30.8-34.3 Mean Platelet Volume 10.1 fL 8.9-12.4 [place] # 0.37 K/uL 0.3-0.9 [place] % 6.8 % 4.3-13.2 Neut# 2.89 K/uL [...] N2N/CCD Import @[facility] Pat Id: [id number] @[facility] Req #: [id number] 1 Alb/Glob 1.1 ratio Albumin 3.7 g/dL 3.4-5 Alkaline Phosphatase 80 U/L 45-117 Bilirubin,Direct 0.1 mg/dL 0-0.2 Bilirubin,Indirect 0.3 mg/dL 0-0.9 Bilirubin,Total 0.4 mg/dL 0.2-1 Globulin 3.5 g/dL 1.9-4.3 Is Patient Fasting? Fasting SGPT/Alt 20 U/L 12-78 Sgot/Ast 16 U/L 15-37 Total Protein 7.2 g/dL 6.4-8.2 Basic Metabolic Panel 06/15/2016 N2N/CCD Import @[facility] Pat Id: [id number] @[facility] Req #: [id number] 1 Anion Gap 7 mEq/L Low 8-16 [...] 136-145 CBS W/Automated Diff 06/15/2016 N2N/CCD Import @[facility] Pat Id: [id number] @[facility] Req #: [id number] 1 Bas% 0.8 % 0-1.1 Baso # 0.04 K/uL 0-0.1 Eo% 1.2 % 0-6.6 Eos # 0.06 K/uL 0-0.5 Hematocrit 36.3 % 36-46.1 Hemoglobin 11.9 gm/dL 11.6-15.8 Lymph # 1.55 K/uL Low 1.8-7 Lymph % 32.2 % 17-46.1 Mean Cell Volume 92.8 fl 80.9-99 Mean Corpuscular HGB 30.4 pg 25.9-32.7 Mean Corpuscular HGB Conc 32.8 g/dL 30.8-34.3 Mean Platelet Volume 9.9 fL 8.9-12.4 [place] # 0.31 K/uL 0.3-0.9 [place] % 6.4 % 4.3-13.2 Neut# 2.86 K/uL 1.8-7 Neut% 59.4 % 40.4-72.8 Platelet Count 313 K/uL 155-360 Red Blood Count 3.91 M/uL 3.9-5.4 Red Cell Distri Width %CV 13.5 % 11.7-14.4 Red Cell Distri Width SD 44.8 fl 3-47 White Blood Count 4.8 K/uL 3.1-10.7 LDL Cholesterol Profile 06/15/2016 N2N/CCD Import @[facility] Pat Id: [id number] @[facility] Req #: [id number] 1 Cholesterol 172 mg/dL 29 HDL Cholesterol [...] 30.8-34.3 Mean Platelet Volume 10.1 fL 8.9-12.4 [place] # 0.44 K/uL 0.3-0.9 [place] % 7.5 % 4.3-13.2 Neut# 3.52 K/uL 1-7 Neut% 60.4 % 40.4-72.8 Platelet Count 289 K/uL 155-360 Red Blood Count 3.79 M/uL Low 3.9-5.4 Red Cell Distri Width %CV 13.9 % 11.7-14.4 Red Cell Distri Width SD 44.2 fl 3-47 White Blood Count 5.8 K/uL 3.1-10.7 Liver Function Tests 06/11/2015 N2N/[employer] Import Alb/Glob 0.9 ratio Albumin 3.6 g/dL 3.4-5 Alkaline Phosphatase 100 U/L 45-117 Bilirubin,Direct < 0.1 mg/dL 0-0.2 Bilirubin,Indirect 0.3 mg/dL 0-0.9 Bilirubin,Total 0.4 mg/dL 0.2-1 Globulin 3.8 g/dL 1.9-4.3 SGPT/Alt 32 U/L 12-78 Sgot/Ast 15 U/L 15-37 Total Protein 7.4 g/dL 6.4-8.2 LDL Cholesterol Profile 06/11/2015 N2N/[employer] Import Cholesterol 181 mg/dL 35 HDL Cholesterol 74 mg/dL 36 LDL-Cholesterol 83 mg/dL 37 Triglycerides 121 mg/dL 38 Imaging finding 06/25/2014 N2N/[employer] Import bilateral screening <pending> mammogram CBS W/Automated 06/12/2014 N2N/[employer] Import Bas% 1.0 % 0-1.1 Diff Baso [...] 30.8-34.3 Mean Platelet Volume 9.7 fL 8.9-12.4 [place] # 0.31 K/uL 0.3-0.9 [place] % 6.2 % 4.3-13.2 Neut# 2.58 K/uL 1-7 Neut% 51.4 % 40.4-72.8 Platelet Count 271 K/uL 155-360 Red Blood Count 4.01 M/uL 3.9-5.4 Red Cell Distri Width %CV 13.5 % 11.7-14.4 Red Cell Distri Width SD 43.0 fl 3-47 White Blood Count 5.0 K/uL 3.1-10.7 Basic Metabolic Panel 06/12/2014 N2N/[employer] Import Anion Gap 9 mEq/L 8-16 BUN 17 mg/dL 7-18 BUN/Creat 21.2 ratio Calcium 8.9 mg/dL 8.5-10.1 Carbon Dioxide 26 mmol/L 21-32 Chloride 111 mmol/L High 98-107 Creatinine 0.8 mg/dL 0.6-1.3 Glom Filtration Rate, Estimate >60 mL/min Glucose 91 mg/dL 74-106 If >60 mL/min 39 Potassium 3.9 mmol/L 3.5-5.1 Sodium 142 mmol/L 136-145 LDL Cholesterol Profile 06/12/2014 N2N/[employer] Import Cholesterol 188 mg/dL 40 HDL Cholesterol 78 mg/dL 41 LDL-Cholesterol 87 mg/dL 42 Triglycerides 115 mg/dL 43 Liver Function Tests 06/12/2014 N2N/[employer] Import Alb/Glob 0.9 ratio Albumin 3.4 g/dL 3.4-5 Alkaline Phosphatase 86 U/L 45-117 Bilirubin,Direct 0.1 mg/dL 0-0.2 Bilirubin,Indirect 0.2 mg/dL 0-0.9 Bilirubin,Total 0.3 mg/dL 0.2-1 Globulin 3.6 g/dL 1.9-4.3 SGPT/Alt 22 U/L 12-78 Sgot/Ast 12 U/L Low 15-37 Total Protein 7.0 g/dL 6.4-8.2 Laboratory test 06/12/2014 N2N/[employer] Import Glycohemoglobin (A1c) 6.1 % 4.2-6.3 44 [...] 30.8-34.3 Mean Platelet Volume 10.3 fL 8.9-12.4 [place] # 0.36 K/uL 0.3-0.9 [place] % 6.3 % 4.3-13.2 Neut# 3.48 K/uL 1-7 Neut% 60.6 % 40.4-72.8 Platelet Count 298 K/uL 155-360 Red Blood Count 4.09 M/uL 3.9-5.4 Red Cell Distri Width %CV 13.2 % 11.7-14.4 Red Cell Distri Width SD 42.9 fl 3-47 White Blood Count 5.7 K/uL 3.1-10.7 LDL Cholesterol Profile 06/07/2013 N2N/[employer] Import Cholesterol 188 mg/dL 120-200 HDL Cholesterol 65 mg/dL 29-83 LDL-Cholesterol 93 mg/dL 62-185 Triglycerides 148 mg/dL 16-231 Laboratory test 01/04/2013 N[facility] Import Glycohemoglobin (A1c) 6.3 % High 4.8-6 52 finding TSH Reflex FT4 and/or FT3 1.95 uIU/mL 0.49-4.67 53 eAG 134 mg/dL Basic Metabolic Panel 01/04/2013 N2N/[employer] Import Anion Gap 12 mEq/L 8-16 BUN 14 mg/dL 5-23 BUN/Creat 17.5 ratio Calcium 9.4 mg/dL 8.5-10.1 Carbon Dioxide 26 mEq/L 18-29 Chloride 108 mmol/L High 98-107 Creatinine 0.8 mg/dL 0.5-1.4 Glom Filtration Rate, Estimate >60 mL/min Glucose 88 mg/dL 76-115 If >60 mL/min 54 Potassium 4.2 mmol/L 3.5-5.1 Sodium 142 mmol/L 136-145 LDL Cholesterol 01/04/2013 N2N/CCD Import Cholesterol 202 [...] 30.8-34.3 Mean Platelet Volume 9.9 fL 8.9-12.4 [place] # 0.39 K/uL 0.3-0.9 [place] % 6.8 % 4.3-13.2 Neut# 3.21 K/uL [...] D deficiency has been defined by the [place] [employer] and an Endocrine Society practice guideline as a level of serum 25-OH vitamin D less than 20 ng/mL (1,2). The Endocrine Society went on to further define vitamin D insufficiency as a level between 21 and 29 ng/mL (2). 1. IOM ([place] [employer]). 2010. Dietary reference intakes for calcium and D. [place]: The National Academies Press. 2. Kellie MF, Donald YOUSIF, Rossi JONES, et al. Evaluation, treatment, and prevention of vitamin D deficiency: an Endocrine Society clinical practice guideline. JCEM. 2010; 96(7):1911-30. Performed at: RN - [facility] [address] [id number] Special Loan Officer: Joceline Herrera MD, Phone: [phone] Note: Persistent reduction for 3 months [...] for more aggressive treatment of glycemia. The [place] Diabetes Association recommends that a primary goal of therapy should be a HbA1c of <7% and that physicians should re-evaluate the treatment regimen in patients with HbA1c values consistently >8%. 45 QUERY: Reflex add FT3? N QUERY: Reflex add FT4? Y 46 Vitamin D deficiency has been defined by the [place] [employer] and an Endocrine Society practice guideline as a level of serum 25-OH vitamin D less than 20 ng/mL (1,2). The Endocrine Society went on to further define vitamin D insufficiency as a level between 21 and 29 ng/mL (2). 1. IOM ([place] [employer]). 2010. Dietary reference intakes for calcium and D. [place]: The National Academies Press. 2. Donald Keller, Rossi JONES et al. Evaluation, treatment, and prevention of vitamin D deficiency: an Endocrine Society clinical practice guideline. JCEM. 2010; 96(7):1911-30. Performed at: - [facility] [address] [id number] Special Loan Officer: Joceline Herrera MD, Phone: [phone] Vitamin D deficiency has been defined by the [place] [employer] and an Endocrine Society practice guideline as a level of serum 25-OH vitamin D less than 20 ng/mL (1,2). The Endocrine Society went on to further define vitamin D insufficiency as a level between 21 and 29 ng/mL (2). 1. IOM ([place] [employer]). 2010. Dietary reference intakes for calcium and D. [place]: The National Academies Press. 2. Donald Keller, Rossi JONES et al. Evaluation, treatment, and prevention of vitamin D deficiency: an Endocrine Society clinical practice guideline. JCEM. 2010; 96(7):1911-30. Performed at: [facility] [id number] Special Loan Officer: Joceline Herrera MD, Phone: [phone] A1c value between 5.7% and 6.4% [...] D deficiency has been defined by the [place] [employer] and an Endocrine Society practice guideline as a level of serum 25-OH vitamin D less than 20 ng/mL (1,2). The Endocrine Society went on to further define vitamin D insufficiency as a level between 21 and 29 ng/mL (2). 1. IOM ([place] [employer]). 2010. Dietary reference intakes for calcium and D. [place]: The National Academies Press. 2. Kellie MF, Donald [place], Rossi JONES, et al. Evaluation, treatment, and prevention of vitamin D deficiency: an Endocrine Society clinical practice guideline. JCEM. 2010; 96(7):1911-30. Performed at: RN - [facility] [address] [id number] Special Loan Officer: Joceline Herrera MD, Phone: [phone] A1c value between 5.7% and 6.4% [...] D deficiency has been defined by the [place] [employer] and an Endocrine Society practice guideline as a level of serum 25-OH vitamin D less than 20 ng/mL (1,2). The Endocrine Society went on to further define vitamin D insufficiency as a level between 21 and 29 ng/mL (2). 1. IOM ([place] [employer]). 2010. Dietary reference intakes for calcium and D. [place]: The National Academies Press. 2. Kellie CAMACHO, Donald YOUSIF, Rossi JONES, et al. Evaluation, treatment, and prevention of vitamin D deficiency: an Endocrine Society clinical practice guideline. JCEM. 2010; 96(7):1911-30. Performed at: RN - [facility] [address] [id number] Special Loan Officer: Joceline Herrera MD, Phone: [phone] Glucose, Fast 98 mg/dL 1/2 Hr [...] D deficiency has been defined by the [place] and an Endocrine Society practice guideline as a level of serum 25-OH vitamin D less than 20 ng/mL (1,2). The Endocrine Society went on to further define vitamin D insufficiency as a level between 21 and 29 ng/mL (2). 1. IOM ([place] [employer]). 2010. Dietary reference intakes for calcium and D. [place]: The National Academies Press. 2. Kellie MF, Donald YOUSIF, Rossi JONES, et al. Evaluation, treatment, and prevention of vitamin D deficiency: an Endocrine Society clinical practice guideline. JCEM. 2010; 96(7):1911-30. Performed at: RN - [facility] [address] [id number] Special Loan Officer: Joceline Herrera MD, Phone: [phone] Note: Persistent reduction for 3 months [...] [email or web address]. Procedures Date Code Description Status 11/18/2018 91702 Noninvasive Ear Or Pulse Oximetry For Oxygen Completed Saturation 11/18/2018 89940 EKG Tracing & Interpretation Completed 07/16/2018 77738 Mammography Unilateral Completed 07/16/2018 47326507 Mammogram Completed 03/22/2018 41765 Noninvasive Ear Or Pulse Oximetry For Oxygen Completed Saturation 03/22/2018 66087 Inhalation [place] For Acute Airway Obstruction Completed W/Nebulizer/Inhaler 10/25/2017 820478834 Diabetic Retinal Eye Exam Completed 07/13/2017 44368 Bone Density Study, Single Photon Absorptiometry Completed 12/19/2016 67623 EKG Tracing & Interpretation Completed 03/16/2016 79832 Inhalation TX For Acute Airway Obstruction Completed W/Nebulizer/Inhaler 08/17/2015 25198 Noninvasive Ear Or Pulse Oximetry For Oxygen Completed Saturation 08/10/2015 22774 Inhalation [place] For Acute Airway Obstruction Completed W/Nebulizer/Inhaler 11/18/2014 40428 EKG Tracing & Interpretation Completed 06/15/2014 70666 Pure Tone Hearing Test, Air Completed 11/26/2013 67812 Inhalation [place] For Acute Airway Obstruction Completed W/Nebulizer/Inhaler 09/27/2013 03533148 Colonoscopy Completed 06/11/2013 49011 EKG Tracing & Interpretation Completed 10/07/2012 20327 Inhalation [place] For Acute Airway Obstruction Completed W/Nebulizer/Inhaler 10/07/2012 47012 Noninvasive Ear Or Pulse Oximetry For Oxygen Completed Saturation 10/03/2012 54549 Noninvasive Ear Or Pulse Oximetry For Oxygen Completed Saturation 10/03/2012 99390 Inhalation TX For Acute Airway Obstruction Completed W/Nebulizer/Inhaler 07/01/2012 93318 Remove Impacted Cerumen Completed 04/03/2011 97607 Screening Vision Test Completed 04/03/2011 75370 EKG Tracing & Interpretation Completed 04/03/2011 21621 Pure Tone-Air Condition Only Completed 07/26/2010 36057 Inhalation [place] For Acute Airway Obstruction Completed W/Nebulizer/Inhaler 11/17/2008 68549 EKG Tracing & Interpretation Completed 07/08/2007 21622 Screening Vision Test Completed 79437 Colonoscopy Flexible Diagnostic Completed Encounters Type Date Location Provider Dx Diagnosis Office Visit 2018 [facility] I10 Essential ( primary) 10:00a hypertension E78.49 Other hyperlipidemia K21.9 Gastro-esophageal reflux disease without esophagitis M16.9 Osteoarthritis of hip, unspecified Plan of Treatment Future Appointment(s):02/19/2019 9:30 am - [facility] at [facility] - CATA PaJ06.9 Acute upper respiratory infection, uoytpqdcprvH51.0 Chondrocostal junction syndrome [Tietze]New Xrays:chest xray, Ordered: 11/18/18R07.89 Other chest painI49.3 Ventricular premature depolarization
[2018-12-14 14:42] VITALS: BP 138/63
--- NOTE | 2018-12-14 15:00 | UC ---
Skin Complaint HPI - HPI Summary HPI Summary: Pt presents with c/o tender lump in left inner nostril. Pt has been applying warm compress, saline spray and trying to drain at home. - History of Current Complaint Chief Complaint: UCGeneralIllness Time Seen by Provider: 12/14/18 14:41 Stated Complaint: NASAL COMPLAINT Hx Obtained From: Patient ?: No Onset/Duration: Gradual Onset, Lasting Days, Still Present, Worse Since - onset Skin Exposure Onset/Duration: Days Ago Timing: Constant Onset Severity: Mild Current Severity: Moderate Pain Intensity: 7 Location: Discrete, Nose - left notril, inner Character: Pain, Raised, Painful Aggravating Factor(s): Touch Alleviating Factor(s): Nothing Associated Signs & Symptoms: Positive: Tenderness - Allergy/Home Medications Allergies/Adverse Reactions: Allergies Allergy/AdvReac Type Severity Reaction Status Date / Time No Known Allergies Allergy Verified 12/14/18 14:42 Home Medications: Home Medications Atorvastatin* [Lipitor 10 MG*] 10 mg PO 1700 12/14/18 [History Confirmed ] Cholecalciferol TAB* [Vitamin D TAB*] 1,000 unit PO DAILY 12/14/18 [History Confirmed 12/14/18] Pantoprazole TAB * [Protonix TAB*] 40 mg PO DAILY 12/14/18 [History Confirmed ] Valsartan/Hydrochlorothiazide [Valsartan-Hctz 320-12.5 mg Tab] 1 each PO DAILY 12/14/18 [History Confirmed 12/14/18] raNITIdine HCl [Zantac 75] 75 mg PO 12/14/18 [History] PMH/Surg Hx/FS Hx/Imm Hx Previously Healthy: Yes - Surgical History Surgical History: None - Family History Known Family History: Positive: Cardiac Disease - Social History Occupation: Retired Lives: With Family Alcohol Use: Rare Substance Use Type: None Smoking Status (MU): Never Smoked Tobacco Have You Smoked in the Last Year: No Review of Systems All Other Systems Reviewed And Are Negative: Yes Constitutional: Positive: Negative Skin: Positive: Other - tender lump in left nostril Eyes: Positive: Negative ENT: Positive: Negative Respiratory: Positive: Negative Cardiovascular: Positive: Negative Gastrointestinal: Positive: Negative Genitourinary: Positive: Negative Motor: Positive: Negative Neurovascular: Positive: Negative Musculoskeletal: Positive: Negative Neurological: Positive: Negative Psychological: Positive: Negative Is Patient Immunocompromised?: No Physical Exam Triage Information Reviewed: Yes Appearance: Well-Appearing Vital Signs: Initial Vital Signs Temp 97.6 F 12/14/18 14:37 Pulse 78 12/14/18 14:37 Resp 16 12/14/18 14:37 BP 138/63 12/14/18 14:37 Pulse Ox 100 12/14/18 14:37 Vital Signs Reviewed: Yes Eye Exam: Normal ENT: Positive: Other - tender erythematous small citlalli size lump in left inner nostril, soft no drainage Dental Exam: Normal Neck exam: Normal Respiratory Exam: Normal Cardiovascular Exam: Normal Musculoskeletal Exam: Normal Neurological Exam: Normal Psychological Exam: Normal Skin Exam: Other - tender lump left inner nostril Course/Dx - Differential Diagnoses - Skin Complaint Differential Diagnoses: Abscess, Cellulitis, MRSA - Diagnoses Provider Diagnosis: Abscess Discharge - Sign-Out/Discharge Documenting (check all that apply): Patient Departure All imaging exams completed and their final reports reviewed: No Studies - Discharge Plan Condition: Stable Disposition: HOME Prescriptions: DOXYcycline CAP(*) [DOXYcycline 100MG CAP(*)] 100 mg PO Q12H #20 cap Patient Education Materials: Abscess (ED), Warm Compress or Soak (ED) Referrals: Jackie Hannah PA [Primary Care Provider] - If Needed - Billing Disposition and Condition Condition: STABLE Disposition: Home - Attestation Statements Provider Attestation: I was available for consult. This patient was seen by the ARUN. The patient was not presented to, seen by, or examined by me. -Teresa
== END 2018-12-14 15:08 | disposition home or self-care (01) ==
LOC: UCCORT 13:53
DX: J32.9 Chronic sinusitis, unspecified (principal)
CPT/HCPCS: 99212; G0463